=== PATIENT | male | born 1995 | race Caucasian/White ===

== ENCOUNTER 2017-03-09 18:01 | Emergency (ER) | payer MEDICAID ==
[~2017-03-09] VITALS: Ht 177.8 cm; Wt 63.5 kg
--- OUTSIDE RECORDS SUMMARY | 2017-03-09 18:19 | External Medical Summary Rpt | CCD ---
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 014 ed 10:30 Neutrop 05-13-2 2.9 X 1.5-7.1 Normal complet hil 014 10\S\3 ed Count 10:30 Monocyt 05-13-2 0.5 X 0.2-1.2 Normal complet e Count 014 10\S\3 ed 10:30 Eosinop 05-13-2 0.1 X 0.0-0.8 Normal complet hil 014 10\S\3 ed Count 10:30 Basophi -13-2 0.0 X 0.0-0.1 Normal complet l Count 014 10\S\3 ed 10:30 Lymphoc -13-2 2.1 X 0.7-4.3 Normal complet yte 014 10\S\3 ed Count 10:30 BASIC METABOLIC PANEL (10-04-2013 10:30) Glucose --2 96 70-99 Normal complet 014 mg/dL ed 10:30 BUN -13-2 11 5-18 Normal complet 014 mg/dL ed 10:30 Creatin -13-2 1.0 0.3-0.9 Above complet ine 014 mg/dL high ed 10:30 normal Sodium --2 140 133-144 Normal complet 014 mEq/L ed 10:30 Potassi 10-04-2 4.3 3.5-5.0 Normal complet um 014 mEq/L ed 10:30 Chlorid 10-04-2 103 99-108 Normal complet e 014 mEq/L ed 10:30 CO2 -13-2 29 21-29 Normal complet 014 mmol/L ed 10:30 Calcium 10-04-2 9.7 7.5-10. Normal complet 014 mg/dL 2 ed 10:30 BUN/Cre 10-04-2 11 complet at 014 ed Ratio 10:30 CBC W/DIFF (08-30-2013 01:49) WBC -08-2 6.4 X 3.9-11. Normal complet 014 10\S\3 6 ed 01:49 Basophi 08-30-2 0.4 % 0.0-2.0 Normal complet ls % 014 ed 01:49 Neutrop 08-2 2.9 X 1.5-7.1 Normal complet hil 014 10\S\3 ed Count 01:49 Monocyt -08-2 0.6 X 0.2-1.2 Normal complet e Count 014 10\S\3 ed 01:49 Eosinop -08-2 0.3 X 0.0-0.8 Normal complet hil 014 10\S\3 ed Count 01:49 Basophi 08-2 0.0 X 0.0-0.1 Normal complet l Count 014 10\S\3 ed 01:49 Lymphoc 04-08-2 2.6 X 0.7-4.3 Normal complet yte 014 10\S\3 ed Count 01:49 RBC 04-08-2 4.96 X 3.69-5. Normal complet 014 10\S\6 73 ed 01:49 Hemoglo -08-2 15.1 11.8-15 Normal complet bin 014 gm/dL .7 ed 01:49 Hematoc -08-2 43.5 % 35.6-45 Normal complet rit 014 .6 ed 01:49 Platele -08-2 159 X 125-365 Normal complet t 014 10\S\3 ed 01:49 MCH 04-08-2 30.4 pg 25.5-33 Normal complet 014 .7 ed 01:49 MCHC -08-2 34.7 31.8-35 Normal complet 014 gm/dL .7 ed 01:49 MCV -08-2 87.6 fl 78.0-98 Normal complet 014 .0 ed 01:49 RDW 08-2 13.5 % 10.7-14 Normal complet 014 .1 ed 01:49 MPV -08-2 7.7 fl 6.6-10. Normal complet 014 1 ed 01:49 Neutrop 04-08-2 45.2 % 33.0-89 Normal complet hils % 014 .0 ed 01:49 Lymphoc -08-2 41.3 % 4.0-51. Normal complet ytes % 014 0 ed 01:49 Monocyt -08-2 8.8 % 3.0-15. Normal complet es % 014 0 ed 01:49 Eosinop 08-2 4.3 % 0.0-6.0 Normal complet hils % 014 ed 01:49 TYPE/RH (08-30-2013 01:49) ABO/RH O complet TYPING 014 Negativ ed 01:49 e Procedures Procedure DOS Code Location Performer Comment [facility] 13499 TRIANGLE IRMA LOWER 7 ANESTHESI INTESTINE A GROUP PS ENDOSCOPY DISTAL DUODENUM COLONOSCO 32279 [facility] WOODY PY FLX DX 7 [place] W/COLLJ G SPEC WHEN SURGICAL PFRMD [facility] G0463 [place] MENJIVAR OUTPATIEN 7 G A R H G A R H T CLIN VISIT ASSESS & MGMT PT SIMPLE 16577 [facility] 7 MEDICAL SCALP/NEC PARTNERS K/AX/CLAUDETTE LL T/TRUNK 2.5CM/< GROUND A0425 NEON NEON MILEAGE 7 VOLUNTEER VOLUNTEER PER FIRE FIRE STATUTE DEPT\EMS DEPT\EMS MILE AMBULANCE A0429 NEON NEON SERVICE 7 VOLUNTEER VOLUNTEER BLS FIRE FIRE EMERGENCY DEPT\EMS DEPT\[place] [address] KAUSHAL RANGEL JR ABDOMEN & 7 JUAN CARLOS MOREL PELVIS PC W/O CONTRAST MATERIAL [facility] G0463 [place] [facility] OUTPATIEN 5 G A R H G A R H T CLIN VISIT ASSESS & MGMT PT HOSPITAL G0463 [place] OUTPATIEN 5 G A R H G A R H T CLIN VISIT ASSESS & MGMT PT [facility] 66836 HECTOR YOUNG CEPHALOGR 5 [facility] W/REC CENTER CENTER AWAKE&DAREN WSY MRI BRAIN 65321 HECTOR LOPEZ BRAIN 5 DEN STEM W/O RADIOLOGY W/[place] [address] HECTOR LOPEZ HEAD/BRAI 5 DEN N W/O RADIOLOGY CONTRAST PLLC MATERIAL COLLECTIO 63295 [facility] [place] N VENOUS 4 G A R H G A R H BLOOD VENIPUNCT URE BLOOD 67621 [place] COUNT 4 G A R H G A R H COMPLETE AUTO&[place] [address] [place] ABDOMEN & 4 G A R H G A R H PELVIS W/O CONTRST 1/> BODY RE BASIC 76241 [place] METABOLIC 4 G A R H G A R H PANEL CALCIUM TOTAL THER 65061 HECTOR YOUNG PROPH/DX 4 [facility] NJX IV CENTER CENTER PUSH SINGLE/1S T SBST/DRUG BLOOD 72986 [facility] OCCULT 4 DEMAR N PEROXIDAS EMERGENCY E ACTV SERV QUAL FECES 1-[address] [place] [address] KAUSHAL RANGEL JR HEAD/BRAI 4 JUAN CARLOS MOREL EDDIE N W/O PC CONTRAST MATERIAL SPECIAL 17959 APPAL[facility]I ANGA AMA STAIN 4 AN GROUP 1 [facility] [place] [address] APP[place] ANGA AMA SURG 4 [facility] GROSS&EMILIA ROSCOPIC EXAM RINGERS J7120 [place] LACTATE 4 G A R H G A R H INFUSION UP TO 1000 CC INJECTION J2405 [place] 4 G A R H G A R H ONDANSETR ON HCL PER 1 MG CUL 63899 [place] PRSMPTV 4 G A R H G A R H PTHGNC ORGANISM SCRN W/COLONY ESTIMJ COLONOSCO 26887 ARH ARH PY FLX DX 4 [place] W/COLLJ G G SPEC WHEN SURGICAL SURGICAL PFRMD CLIN CLIN ANES 21198 TRIANGLE HESS DEV LOWER 4 ANESTHESI INTESTINE A GROUP PS ENDOSCOPY DISTAL DUODENUM EGD 71553 [place] TRANSORAL 4 G A R H G A R H BIOPSY SINGLE/MU LTIPLE INJECTION J2250 [place] 4 G A R H G A R H MIDAZOLAM HCL PER 1 MG INJECTION J3010 [place] FENTANYL 4 G A R H G A R H CITRATE 0.1 MG BASIC 48046 [place] METABOLIC 4 G A R H G A R H PANEL CALCIUM TOTAL COLLECTIO 09789 [place] N VENOUS 4 G A R H G A R H BLOOD VENIPUNCT URE BLOOD 49586 [place] COUNT 4 G A R H G A R H COMPLETE AUTO&AUTO DIFRNTL WBC INJECTION J1100 [facility] 4 [facility] [place] SODIUM PHOSPHATE 1 MG OPHTH 73139 [facility] REIS MEDICAL 4 GLORIA GLORIA XM&EVAL COMPRE NEW PT 1/> VST SPHERE V2100 [facility] REIS SINGLE 4 GLORIA GLORIA VISION PLANO +/- 4.00 PER LENS FITTING 99765 CH[facility] REIS SPECTACLE 4 GLORIA GLORIA S XCPT APHAKIA MONOFOCAL FRAMES V2020 [facility] REIS PURCHASES 4 GLORIA GLORIA SCRATCH V2760 [facility] CHATO RESISTANT 4 GLORIA GLORIA COATING PER LENS LENS V2784 CHAT[facility] CHATO POLYCARBO 4 GLORIA GLORIA [place] E[place] [address] HECTOR STEVENSON ABDOMEN & 3 ADA PELVIS RADIOLOGY W/CONTRAS PLLC T MATERIAL URNLS DIP 94097 HECTOR YOUNG 3 [facility] STICK/TAB CENTER CENTER LET REAGENT AUTO MICROSCOP Y BLOOD 56406 HECTOR YOUNG COUNT 3 [facility] COMPLETE CENTER CENTER AUTO&AUTO DIFRNTL WBC RADEX 77714 HECTOR HERNANDEZ ABDOMEN 1 3 II ALFONSO RADIOLOGY [place] [address] HECTOR YOUNG LIPASE 3 [facility] COLLECTIO 94396 HECTOR YOUNG N VENOUS 3 [facility] BLOOD [facility] [address] HECTOR YOUNG AMYLASE 3 [facility] COMPREHEN 37029 HECTOR YOUNG SIVE 3 [facility] METABOLIC [facility] PANEL RADEX 66526 KAUSHAL RANGEL JR FINGR 2 JUAN CARLOS MOREL EDDIE MINIMUM 2 PC VIEWS ANES 01353 [place] [facility] UPPER GI 1 [facility] ENDOSCOPY SERVICES PROXIMAL TO DUODENUM COLONOSCO [address] [facility] PY FLX DX 1 Y [facility] [place] [address] [facility] ALCON NOAH SURG 1 Y OF PATHOLOGY [facility] GROSS&EMILIA ROSCOP[place] EX[place]GD [address] [facility] TRANSORAL 1 Y Y BIOPSY [facility] SINGLE/MU LTIPLE INFUSION J7030 [facility] NORMAL 1 Y Y SALINE [facility] SOLUTION 1000 CC SCREENING 18699 AKILAH AKILAH TEST 1 MELIZA HAIDER VISUAL ELEMENTAR ELEMENTAR ACUITY Y Y QUANTITAT DENITA BILAT SCREENING 36808 AKILAH AKILAH TEST 1 MELIZA HAIDER PURE TONE ELEMENTAR ELEMENTAR AIR ONLY Y Y CUL BACT 52728 [facility] XCPT [facility] [place] [facility] [facility] URINE BLOOD/STO OL AEROBIC ISOL BLOOD 81773 [facility] COUNT 0 COMP RACHEL COMPLETE HEALTH AUTO&AUTO [place] DIFRNTL WBC HETEROPHI 85337 DANAY ART LE 0 COMP RACHEL ANTIBOD[place] [address] LEANDER RUBENS STREPTOCO 0 COMP RACHEL [facility] [place] COLLECTIO 80216 DANAY ART N VENOUS 0 COMP RACHEL BLOOD HEALTH VENIPUNCT [place] URE SCREENING 45710 AKILAH AKILAH TEST 0 HAIDER HAIDER VISUAL ELEMENTAR ELEMENTAR ACUITY Y Y QUANTITAT DENITA BILAT SCREENING 61468 AKILAH AKILAH TEST 0 HAIDER HAIDER PURE TONE ELEMENTAR ELEMENTAR AIR ONLY Y Y CUL BACT 65389 [facility] XCPT 0 [facility] INC URINE BLOOD/[place] [address] LEANDER JAILENE STREPTOCO 0 COMP MAT [facility] [place] OPHTH 53637 Brian REIS MEDICAL 0 CHATO GLORIA XM&EVAL OD PSC COMPRHNSV ESTAB PT 1/> FITTING 01566 Brian REIS SPECTACLE 0 CHATO GLORIA S XCPT OD PSC APHAKIA MONOFOCAL FRAMES V2020 Brian REIS PURCHASES 0 CHATO GLORIA OD PSC SPHERE V2101 Brian REIS SINGLE 0 CHATO GLORIA VISION OD PSC +/- 4.12 +/- 7.00D PER LENS FRAMES V2020 Brian REIS, PURCHASES 9 CHATO CARISSA K OD PSC KOD FITTING 50636 Brian REIS, SPECTACLE 9 CHATO CARISSA K S XCPT OD PSC APHAKIA KOD MONOFOCAL SPHERE V2100 Brian REIS, SINGLE 9 CHATO CARISSA K VISION OD PSC PLANO +/- KOD 4.00 PER LENS OPHTH 94639 Brian REIS, MEDICAL 9 CHATO CARISSA K XM&EVAL OD PSC COMPRHNSV KOD ESTAB PT 1/> SCREENING 88064 DHS/CO AKILAH TEST 9 [facility] PURE TONE CENTRAL ELEMENTAR AIR ONLY BANK ACCT Y MCV4 74733 DHS/CO AKILAH MENACWY 9 [facility] CENTRAL ELEMENTAR GRPS BANK ACCT Y [id number] IM USE RADEX 03998 [place] FACIAL 9 G A R H G A R H BONES COMPLETE MINIMUM 3 VIEWS SPECIAL 66931 [place]TON[place] STAIN 9 [facility], GROUP 1 SERV SUSAN Yoder [facility] NISMS I&[place] [address] [place] SURG 9 [facility], PATHOLOGY SERV SUSAN M FOUNDATIO GROSS&EMILIA ROSCOPIC EXAM COLONOSCO 45882 [facility] 9 Y Y W/BIOPSY [facility] SINGLE/MU LTIPLE ANES 25447 MEAGAN LASHAUN, LOWER 9 [facility] IN[facility] ENDOSCOPY DISTAL DUODENUM COLSC FLX [address] [facility] 9 Y Y W/REMOVAL [facility] LESION BY HOT BX FORCEPS GI IMAG 05769 MEAGAN MCCURDY, INTRALUMI 9 MEDICAL MARY NAL SERV ESOPHAGUS FOUNDATIO -ILEUM W/I&R EGD 22114 [place] FLOMENHOF TRANSORAL 9 MEDICAL T, BIOPSY SERV [place] SINGLE/[place] [address] [facility] TRACT UPR 8 Y Y W/SM INT [facility] W/MULT SERIAL IMAGES TDAP 40136 [facility] MEHRPOUYA VACCINE 7 8 [place], SANDY YRS/> IM G CLINIC FRAMES V2020 Brian REIS, PURCHASES 8 CHATO Parker OD PSC KOD OPHTH 78527 Brian REIS, MEDICAL 8 CHATO Parker XM&EVAL OD PSC INTERMEDI KOD ATE ESTAB PT SPHERE V2100 Brian REIS, SINGLE 8 CHATO Parker VISION OD PSC PLANO +/- KOD 4.00 PER LENS FITTING 24288 Brian REIS, SPECTACLE 8 CHATO Parker S XCPT OD PSC APHAKIA KOD MONOFOCAL MOLEC SEP 32923 [facility] 8 Y Y ELECTROPH [facility] EACH PREPJ MOLECULAR [address] [facility] DX 8 Y Y AMPLIFICA [facility] TION TARGET EA SEQUENCE COLLECTIO [address] [facility] N VENOUS 8 Y Y BLOOD [facility] VENIPUNCT URE MOLEC [address] [facility] DIAG 8 Y Y ISOL/XTRJ [facility] EA NUCLEIC ACID TYPE MOLEC [address] [facility] MUTATION 8 Y Y ID [facility] SEQUENCIN G 1 SGM EA SGM MOLECULAR [address] [facility] 8 Y Y DIAGNOSTI [facility] CS INTERPRET ATION & REPORT SPECTROPH [address] [facility] OTOMETRY 8 Y Y ANALYT [facility] NOT ELSEWHERE SPECIFIED SCREENING 16929 DHS/CO AKILAH TEST 8 HEALTH HA[facility]ER PURE TONE CENTRAL ELEMENTAR AIR ONLY BANK ACCT Y Encounters Encounter Start End Date Code Location Performer Type Date [facility]OSP[facility] [place] - 7 7 G A R H OUTPATIEN T OFFICE 95764 [facility] OUTPATIEN 7 7 [place] T VISIT G 25 SURGICAL MINUTES CLIN EMERGENCY 74175 [facility] 7 7 G A R H DEPARTMEN T VISIT MODERATE SEVERITY EMERGENCY 95875 [facility] 7 7 MEDICAL DEPARTMEN PARTNERS T VISIT LL HIGH/URGE NT SEVERITY [facility] - 7 7 G A R H OUTPATIEN T EMERGENCY 15821 [facility] DE[facility] 7 7 MEDICAL VISIT PARTNERS HIGH LL SEVERITY& THREAT FUNCJ OFFICE 02140 [facility] OUTPATI[facility] 5 5 T VISIT MORMON 15 HOSP MINUTES OFFICE 14216 DANA[facility] AGARWAL OUTPATIEN 5 5 COMP BYR T VISIT HEALTH 15 [place] MINUTES EMERGENCY 77291 [facility] 5 5 MEDICAL RICHI DEPARTMEN PARTNERS PAULETTE T VISIT LL MODERATE SEVERITY OFFICE 81826 [facility] OUTPAT[facility]EN 5 5 T VISIT 15 MINUTES [facility] [place] - 5 5 G A R H OUTPATIEN T [facility] [place] - 5 5 G A R H OUTPATIEN T OFFICE 99521 [facility] OUTPATIEN 5 5 T VISIT 25 MINUTES OFFICE 36672 DANA[facility] AGARWAL OUTPATIEN 5 5 COMP BYR T VISIT HEALTH 15 [place] MINUTES [facility] [place] - 5 5 MEDICAL OUTPATIEN CENTER T EMERGENCY 63059 [facility] 5 5 DEMAR N CHR VISIT EMERGENCY HIGH SERV SEVERITY& THREAT FUNJ EMERGENCY 32678 [facility] 5 5 MEDICAL ANGELIKA DEPARTMEN PARTNERS T VISIT LL HIGH/URGE NT SEVERITY OFFICE 53121 [facility] 4 4 [place] DUS T VISIT G 15 SURGICAL MINUTES CLIN [facility] [place] - 4 4 G A R H OUTPATIEN T OFFICE 38402 [facility] OUT[facility] 4 4 MIDDLE MIDDLE T VISIT HIGH HIGH 10 [facility] MINUTES [facility] [place] - 4 4 MEDICAL OUTPATIEN CENTER T EMERGENCY 80063 [facility] 4 4 DEMAR N DEPARTMEN EMERGENCY T VISIT SERV HIGH/URGE NT SEVERITY [facility]ICE 81757 [facility] 4 COMP FAR T VISIT HEALTH 15 [place] MINUTES OFFICE 18938 [facility] 4 4 [place] DUS T VISIT G 15 SURGICAL MINUTES CLIN EMERGENCY 39984 [facility] DEPT 4 4 MEDICAL ROT VISIT PARTNERS HIGH LL SEVERITY& THREAT FUNCJ EMERGENCY 70151 [place] 4 4 G A R H DEPARTMEN T VISIT HIGH/URGE NT SEVERITY [facility] [place] - 4 4 G A R H OUTPATIEN T [facility] [place] [facility] 4 4 G A R H OUTPATIEN T [facility] [place] - OTHER 4 4 G A R H OFFICE 99561 [facility] OUTPATIEN 4 4 ARH T VISIT FAMILY 10 HEALTH CE MINUTES OFFICE 91790 [facility] 4 4 [place] DUS ION G NEW/ESTAB SURGICAL PATIENT CLIN 40 MIN OFFICE 09989 [facility] OUTPATIEN 4 4 COMP VAN T VISIT HEALTH 15 [place] MINUTES EMERGENCY 15664 [facility] VISIT LL MODERATE SEVERITY [facility] [place] - 4 4 G A R H OUTPATIEN T OFFICE 63543 [facility] OUTPATIEN 4 4 ARH T VISIT FAMILY 25 HEALTH CE MINUTES OFFICE 94512 NIA ZHENG OUTPATIEN 4 4 [place] T VISIT G CLINIC 15 MINUTES OFFICE 78044 [facility] LINDAKINS OUTPATIEN 3 3 MIDDLE MIDDLE T VISIT HIGH HIGH 10 [facility] MINUTES OFFICE 23836 NIA NOONAN OUTPATIEN 3 3 OTTO SHAWNEE T VISIT G CLINIC 15 MINUTES OFFICE 70566 [facility] LINDAKINS OUTPATIEN 3 3 MIDDLE MIDDLE T VISIT HIGH HIGH 10 [facility] MINUTES OFFICE 08059 NIA ZHENG OUTPATIEN 3 3 [place] T VISIT G CLINIC 15 MINUTES OFFICE 03384 [facility] CHRISTENSEN OUTPATIEN 3 3 MIDDLE MIDDLE T VISIT HIGH HIGH 10 [facility] MINUTES EMERGENCY 60380 JACOB MANN DEPT 3 3 EMERGENCY SAHIL VISIT SERVICES HIGH SEVERITY& THREAT FUNJ EMERGENCY 07242 [facility] HIGH/URGE NT SEVERITY [facility] - 3 3 MEDICAL OUTPATIEN CENTER T OFFICE 65750 [facility] OUTPATIEN 3 3 MIDDLE MIDDLE T VISIT HIGH HIGH 10 [facility] MINUTES OFFICE 91674 [facility] HCRISTENSEN OUTPATIEN 3 3 MIDDLE MIDDLE T VISIT HIGH HIGH 10 [facility] MINUTES OFFICE 22528 [facility] OUTPATIEN 2 2 COMP LAR T VISIT HEALTH [address] [place] [address]ES [address] [facility] OUTPATIEN 2 2 COMP MAT T VISIT HEALTH 15 [place] MINUTES [facility] [place] - 2 2 G A R H OUTPATIEN T OFFICE 19415 [facility] OUTPATIEN 2 2 COMP LAR T VISIT HEALTH 15 [place] MINUTES OFFICE 58985 [facility] OUTPATIEN 2 2 COMP LAR T VISIT HEALTH [address] [place] [address]ES [address] [facility] OUTPATIEN 2 2 COMP MAT T VISIT HEALTH 10 [place] MINUTES OFFICE 93044 [facility] 15 [facility]IN MINUTES [facility] 67797 [facility] 1 NURSE T GLORIA T VISIT PRACTITIO 25 NER GR MINUTES OFFICE 03129 [facility] AKILAH OUTPATIEN 1 1 MELIZA HAIDER T VISIT ELEMENTAR ELEMENTAR 10 Y Y MINUTES OFFICE 90631 [facility] AKILAH OUTPATIEN 1 1 HAIDER HAIDER T VISIT ELEMENTAR ELEMENTAR 10 Y Y MINUTES OFFICE 24500 AKILAH AKILAH OUTPATIEN 1 1 MELIZA MCLEANES T VISIT ELEMENTAR ELEMENTAR 10 Y Y MINUTES OFFICE 52092 AKILAH AKILAH OUTPATIEN 1 1 MELIZA MCLEANES T VISIT ELEMENTAR ELEMENTAR 10 Y Y MINUTES OFFICE 92621 [facility] OUTPATIEN 1 1 MELIZA MCLEANES T VISIT ELEMENTAR ELEMENTAR 10 Y Y MINUTES OFFICE 01479 AKILAH AKILAH OUTPATIEN 1 1 HAIDER HAIDER T VISIT ELEMENTAR ELEMENTAR 10 Y Y MINUTES OFFICE 45331 AKIL[facility] AKILAH OUTPATIEN 1 1 HAIDER HAIDER T VISIT ELEMENTAR ELEMENTAR 10 Y Y MINUTES OFFICE 39105 AKIL[facility] AKILAH OUTPATIEN 1 1 HAIDER HAIDER T VISIT ELEMENTAR ELEMENTAR 10 Y Y MINUTES OFFICE 45719 AKIL[facility] AKILAH OUTPATIEN 1 1 HAIDER HAIDER T VISIT ELEMENTAR ELEMENTAR 15 Y Y MINUTES OFFICE 42041 AKIL[facility] AKILAH OUTPATIEN 1 1 HAIDER HAIDER T VISIT ELEMENTAR ELEMENTAR 15 Y Y MINUTES OFFICE 22966 AKILAH AKILAH OUTPATIEN 1 1 HAIDER HAIDER T VISIT ELEMENTAR ELEMENTAR 10 Y Y MINUTES OFFICE 28765 AKILAH AKILAH OUTPATIEN 1 1 HAIDER HAIDER T VISIT ELEMENTAR ELEMENTAR 10 Y Y MINUTES OFFICE 78773 AKILAH AKILAH OUTPATIEN 1 1 HAIDER HAIDER T VISIT ELEMENTAR ELEMENTAR 10 Y Y MINUTES PERIODIC 92939 AKILAH AKILAH PREVENTIV 1 1 HAIDER HAIDER E MED EST ELEMENTAR ELEMENTAR PATIENT Y Y 12-17YRS OFFICE 92433 AKILAH AKILAH OUTPATIEN 1 1 HAIDER HAIDER T VISIT ELEMENTAR ELEMENTAR 10 Y Y MINUTES OFFICE 85253 AKILAH AKILAH OUTPATIEN 1 1 HAIDER HAIDER T VISIT ELEMENTAR ELEMENTAR 10 Y Y MINUTES OFFICE 34164 AKILAH AKILAH OUTPATIEN 1 1 HAIDER HAIDER T VISIT ELEMENTAR ELEMENTAR 10 Y Y MINUTES OFFICE 66476 AKILAH AKILAH OUTPATIEN 0 0 HAIDER HAIDER T VISIT ELEMENTAR ELEMENTAR 10 Y Y MINUTES OFFICE 84690 AKILAH AKILAH OUTPATIEN 0 0 HAIDER HAIDER T VISIT ELEMENTAR ELEMENTAR 10 Y Y MINUTES OFFICE 18893 AKILAH AKILAH OUTPATIEN 0 0 HAIDER HAIDER T VISIT ELEMENTAR ELEMENTAR 10 Y Y MINUTES OFFICE 49807 AKILAH AKILAH OUTPATIEN 0 0 HAIDER HAIDER T VISIT ELEMENTAR ELEMENTAR 10 Y Y MINUTES OFFICE 62828 AKILAH AKILAH OUTPATIEN 0 0 HAIDER HAIDER T VISIT ELEMENTAR ELEMENTAR 10 Y Y MINUTES OFFICE 40316 AKILAH AKILAH OUTPATIEN 0 0 HAIDER HAIDER T VISIT ELEMENTAR ELEMENTAR 10 Y Y MINUTES OFFICE 23481 [facility] OUTPATIEN 0 0 COMP RACHEL T VISIT HEALTH 10 MARVIN MINUTES OFFICE 68875 AKILAH AKILAH OUTPATIEN 0 0 HAIDER HAIDER T VISIT ELEMENTAR ELEMENTAR 10 Y Y MINUTES OFFICE 66994 AKILAH AKILAH OUTPATIEN 0 0 HAIDER HAIDER T VISIT ELEMENTAR ELEMENTAR 10 Y Y MINUTES INITIAL 72374 AKILAH AKILAH PREVENTIV 0 0 HAIDER HAIDER E ELEMENTAR ELEMENTAR MEDICINE Y Y NEW PT AGE 12-17 YR OFFICE 87447 AKILAH AKILAH OUTPATIEN 0 0 HAIDER HAIDER T VISIT ELEMENTAR ELEMENTAR 10 Y Y MINUTES OFFICE 44262 AKILAH AKILAH OUTPATIEN 0 0 HAIDER HAIDER T VISIT ELEMENTAR ELEMENTAR 10 Y Y MINUTES OFFICE 78310 AKILAH AKILAH OUTPATIEN 0 0 HAIDER HAIDER T VISIT ELEMENTAR ELEMENTAR 10 Y Y MINUTES OFFICE 08931 AKILAH AKILAH OUTPATIEN 0 0 HAIDER HAIDER T VISIT ELEMENTAR ELEMENTAR 10 Y Y MINUTES OFFICE 18[address] [facility] OUTPATIEN 0 0 COMP MAT T NEW 20 HEALTH MINUTES MARVIN OFFICE 21025 AKILAH AKILAH OUTPATIEN 0 0 HAIDER HAIDER T VISIT ELEMENTAR ELEMENTAR 10 Y Y MINUTES OFFICE 39179 AKILAH AKILAH OUTPATIEN 0 0 HAIDER HAIDER T VISIT ELEMENTAR ELEMENTAR 10 Y Y MINUTES OFFICE 29966 AKILAH AKILAH OUTPATIEN 0 0 HAIDER HAIDER T VISIT ELEMENTAR ELEMENTAR 10 Y Y MINUTES OFFICE 40629 AKILAH AKILAH OUTPATIEN 0 0 HAIDER HAIDER T VISIT ELEMENTAR ELEMENTAR 10 Y Y MINUTES OFFICE 87126 AKILAH AKILAH OUTPATIEN 0 0 HAIDER HAIDER T VISIT ELEMENTAR ELEMENTAR 10 Y Y MINUTES OFFICE 65451 AKILAH AKILAH OUTPATIEN 0 0 HAIDER HAIDER T VISIT ELEMENTAR ELEMENTAR 10 Y Y MINUTES OFFICE 84452 AKILAH AKILAH OUTPATIEN 0 0 HAIDER HAIDER T VISIT ELEMENTAR ELEMENTAR 10 Y Y MINUTES OFFICE 72060 AKILAH AKILAH OUTPATIEN 0 0 HAIDER HAIDER T VISIT ELEMENTAR ELEMENTAR 10 Y Y MINUTES OFFICE 59359 AKILAH AKILAH OUTPATIEN 0 0 HAIDER HAIDER T VISIT ELEMENTAR ELEMENTAR 10 Y Y MINUTES OFFICE 92175 AKILAH AKILAH OUTPATIEN 0 0 HAIDER HAIDER T VISIT ELEMENTAR ELEMENTAR 10 Y Y MINUTES OFFICE 85711 AKILAH AKILAH OUTPATIEN 0 0 HAIDER HAIDER T VISIT ELEMENTAR ELEMENTAR 10 Y Y MINUTES OFFICE 48071 AKILAH AKILAH OUTPATIEN 0 0 HAIDER HAIDER T VISIT ELEMENTAR ELEMENTAR 10 Y Y MINUTES OFFICE 36740 AKILAH AKILAH OUTPATIEN 0 0 HAIDER HAIDER T VISIT ELEMENTAR ELEMENTAR 10 Y Y MINUTES OFFICE 23941 AKILAH AKILAH OUTPATIEN 0 0 HAIDER HAIDER T VISIT ELEMENTAR ELEMENTAR 10 Y Y MINUTES OFFICE 89683 AKILAH AKILAH OUTPATIEN 0 0 HAIDER HAIDER T VISIT ELEMENTAR ELEMENTAR 10 Y Y MINUTES OFFICE 12438 AKILAH AKILAH OUTPATIEN 0 0 HAIDER HAIDER T VISIT ELEMENTAR ELEMENTAR 10 Y Y MINUTES OFFICE 80702 AKILAH AKILAH OUTPATIEN 0 0 HAIDER HAIDER T VISIT ELEMENTAR ELEMENTAR 10 Y Y MINUTES OFFICE 86655 AKILAH AKILAH OUTPATIEN 0 0 HAIDER HAIDER T VISIT ELEMENTAR ELEMENTAR 10 Y Y MINUTES OFFICE 11815 AKILAH AKILAH OUTPATIEN 0 0 HAIDER HAIDER T VISIT ELEMENTAR ELEMENTAR 10 Y Y MINUTES OFFICE 93822 Brian REIS OUTPATIEN 0 0 CHATO Parker T VISIT OD PSC 15 KOD MINUTES OFFICE 24121 AIKLA[facility] AKILAH OUTPATIEN 0 0 HAIDER HAIDER T VISIT ELEMENTAR ELEMENTAR 10 Y Y MINUTES OFFICE 09730 AKILAH AKILAH OUTPATIEN 0 0 HAIDER HAIDER T VISIT ELEMENTAR ELEMENTAR 15 Y Y MINUTES OFFICE 15151 AKILAH AKILAH OUTPATIEN 0 0 HAIDER HAIDER T VISIT ELEMENTAR ELEMENTAR 15 Y Y MINUTES OFFICE 23216 AKILAH AKILAH OUTPATIEN 0 0 HAIDER HAIDER T VISIT ELEMENTAR ELEMENTAR 10 Y Y MINUTES OFFICE 21793 AKILAH AKILAH OUTPATIEN 0 0 HAIDER HAIDER T VISIT ELEMENTAR ELEMENTAR 10 Y Y MINUTES OFFICE 38273 AKILAH AKILAH OUTPATIEN 0 0 HAIDER HAIDER T VISIT ELEMENTAR ELEMENTAR 15 Y Y MINUTES OFFICE 35652 AKILAH AKILAH OUTPATIEN 0 0 HAIDER HAIDER T VISIT ELEMENTAR ELEMENTAR 10 Y Y MINUTES OFFICE 05704 AKILAH AKILAH OUTPATIEN 0 0 HAIDER HAIDER T VISIT ELEMENTAR ELEMENTAR 10 Y Y MINUTES OFFICE 73550 [facility] OUTPATIEN 0 0 HAIDER HAIDER T VISIT ELEMENTAR ELEMENTAR 15 Y Y MINUTES OFFICE 18504 [facility] OUTPATIEN 0 0 HAIDER HAIDER T VISIT ELEMENTAR ELEMENTAR 15 Y Y MINUTES OFFICE 99154 [facility] OUTPATIEN 0 0 HAIDER HAIDER T VISIT ELEMENTAR ELEMENTAR 15 Y Y MINUTES OFFICE 66315 [facility] OUTPATIEN 0 0 HAIDER HAIDER T VISIT ELEMENTAR ELEMENTAR 10 Y Y MINUTES OFFICE 08581 [facility] OUTPATIEN 0 0 HAIDER HAIDER T VISIT ELEMENTAR ELEMENTAR 10 Y Y MINUTES OFFICE 54372 [facility] OUTPATIEN 0 0 HAIDER HAIDER T VISIT ELEMENTAR ELEMENTAR 10 Y Y MINUTES OFFICE 50892 [facility] OUTPATIEN 0 0 HAIDER HAIDER T VISIT ELEMENTAR ELEMENTAR 15 Y Y MINUTES OFFICE 06621 [facility] OUTPATIEN 0 0 HAIDER HAIDER T VISIT ELEMENTAR ELEMENTAR 15 Y Y MINUTES OFFICE 17764 [facility] OUTPATIEN 0 0 HAIDER HAIDER T VISIT ELEMENTAR ELEMENTAR 15 Y Y MINUTES OFFICE 11641 [facility] OUTPATIEN 0 0 HAIDER HAIDER T VISIT ELEMENTAR ELEMENTAR 10 Y Y MINUTES OFFICE 19889 [facility] OUTPATIEN 0 0 HAIDER HAIDER T VISIT ELEMENTAR ELEMENTAR 10 Y Y MINUTES OFFICE 04878 [facility] OUTPATIEN 0 0 HAIDER HAIDER T VISIT ELEMENTAR ELEMENTAR 10 Y Y MINUTES OFFICE 16012 [facility] OUTPATIEN 0 0 HAIDER HAIDER T VISIT ELEMENTAR ELEMENTAR 10 Y Y MINUTES OFFICE 84153 [facility] OUTPATIEN 0 0 HAIDER HAIDER T VISIT ELEMENTAR ELEMENTAR 10 Y Y MINUTES OFFICE 77217 [facility] AK[facility] OUTPATIEN 0 0 HAIDER HAIDER T VISIT ELEMENTAR ELEMENTAR 10 Y Y MINUTES OFFICE 41876 [facility] AKIL[facility] OUTPATIEN 0 0 HADIER AHIDER T VISIT ELEMENTAR ELEMENTAR 10 Y Y MINUTES OFFICE 35342 [facility] AKILAH OUTPATIEN 0 0 AHIDER HAIDER T VISIT ELEMENTAR ELEMENTAR 15 Y Y MINUTES OFFICE 10419 [facility] AKIL[facility] OUTPATIEN 0 0 HAIDER HAIDER T VISIT ELEMENTAR ELEMENTAR 10 Y Y MINUTES OFFICE 24364 AKIL[facility] AKILAH OUTPATIEN 0 0 HAIDERJONATAN MCLEANES T VISIT ELEMENTAR ELEMENTAR 10 Y Y MINUTES OFFICE 90527 [facility] OUTPATIEN 0 0 HAIDER HAIDER T VISIT ELEMENTAR ELEMENTAR 10 Y Y MINUTES OFFICE 02832 [facility] AK[facility] OUTPATIEN 0 0 HAIDER HAIDER T VISIT ELEMENTAR ELEMENTAR 10 Y Y MINUTES OFFICE 19575 [facility] AK[facility] OUTPATIEN 0 0 HAIDER HAIDER T VISIT ELEMENTAR ELEMENTAR 15 Y Y MINUTES OFFICE 37706 [facility] AKILAH OUTPATIEN 0 0 HAIDER HAIDER T VISIT ELEMENTAR ELEMENTAR 15 Y Y MINUTES OFFICE 85498 AK[facility] AKILAH OUTPATIEN 0 0 HAIDER HAIDER T VISIT ELEMENTAR ELEMENTAR 10 Y Y MINUTES OFFICE 35004 AK[facility] AKILAH OUTPATIEN 0 0 HAIDER HAIDER T VISIT ELEMENTAR ELEMENTAR 10 Y Y MINUTES OFFICE 90779 [facility] AKIL[facility] OUTPATIEN 0 0 HAIDER HAIDER T VISIT ELEMENTAR ELEMENTAR 10 Y Y MINUTES OFFICE 61971 AKIL[facility] AKILAH OUTPATIEN 0 0 HAIDER HAIDER T VISIT ELEMENTAR ELEMENTAR 15 Y Y MINUTES OFFICE 91661 AK[facility] AKILAH OUTPATIEN 0 0 HAIDER HAIDER T VISIT ELEMENTAR ELEMENTAR 15 Y Y MINUTES OFFICE 04935 AK[facility] AKILAH OUTPATIEN 0 0 HAIDER HAIDER T VISIT ELEMENTAR ELEMENTAR 15 Y Y MINUTES OFFICE 67051 AKILAH AKILAH OUTPATIEN 0 0 HAIDER HAIDER T VISIT ELEMENTAR ELEMENTAR 15 Y Y MINUTES OFFICE 75875 AKIL[facility] AKILAH OUTPATIEN 0 0 HAIDER HAIDER T VISIT ELEMENTAR ELEMENTAR 10 Y Y MINUTES OFFICE 79022 AKIL[facility] AKILAH OUTPATIEN 0 0 HAIDER HAIDER T VISIT ELEMENTAR ELEMENTAR 10 Y Y MINUTES OFFICE 48405 AKILAH AKILAH OUTPATIEN 0 0 HAIDER HAIDER T VISIT ELEMENTAR ELEMENTAR 15 Y Y MINUTES OFFICE 98304 AKILAH AKILAH OUTPATIEN 9 9 HAIDER HAIDER T VISIT ELEMENTAR ELEMENTAR 10 Y Y MINUTES OFFICE 80974 AKILAH AKILAH OUTPATIEN 9 9 HAIDER HAIDER T VISIT ELEMENTAR ELEMENTAR 10 Y Y MINUTES OFFICE 77105 AKIL[facility] AKILAH OUTPATIEN 9 9 HAIDER HAIDER T VISIT ELEMENTAR ELEMENTAR 10 Y Y MINUTES OFFICE 43057 [facility] 9 9 [facility] HAID[facility] T VISIT CENTRAL ELEMENTAR 10 BANK ACCT Y MINUTES OFFICE 49536 [facility] OUTPATIEN 9 9 HEALTH HAIDER T VISIT CENTRAL ELEMENTAR 10 BANK ACCT Y MINUTES OFFICE 38298 [facility] OUTPATIEN 9 9 HEALTH HAIDER T VISIT CENTRAL ELEMENTAR 15 BANK ACCT Y MINUTES OFFICE 74591 [facility] OUTPATIEN 9 9 [facility]ALTH HAIDER T VISIT CENTRAL ELEMENTAR 15 BANK ACCT Y MINUTES OFFICE 94941 [facility] OUTPATI[facility] 9 9 [facility] HAIDER T VISIT CENTRAL ELEMENTAR 15 BANK ACCT Y MINUTES OFFICE 54809 [facility] OUTPATIEN 9 9 HEALTH HAIDER T VISIT CENTRAL ELEMENTAR 10 BANK ACCT Y MINUTES OFFICE 26557 [facility] OUTPATIEN 9 9 HEALTH HAIDER T VISIT CENTRAL ELEMENTAR 10 BANK ACCT Y MINUTES OFFICE 36002 [facility] OUTPATIEN 9 9 HEALTH HAIDER T VISIT CENTRAL ELEMENTAR 10 BANK ACCT Y MINUTES OFFICE 57836 [facility] OUTPATI[facility] 9 9 HEALTH HAIDER T VISIT CENTRAL ELEMENTAR 10 BANK ACCT Y MINUTES OFFICE 97398 [facility] OUTPATIEN 9 9 HEALTH HAIDER T VISIT CENTRAL ELEMENTAR 10 BANK ACCT Y MINUTES OFFICE 04698 [facility] OUTPATIEN 9 9 HEALTH HAIDER T VISIT CENTRAL ELEMENTAR 10 BANK ACCT Y MINUTES OFFICE 43957 [facility] OUTPATIEN 9 9 HEALTH HAIDER T VISIT CENTRAL ELEMENTAR 10 BANK ACCT Y MINUTES OFFICE 97109 [facility] OUTPATIEN 9 9 HEALTH HAIDER T VISIT CENTRAL ELEMENTAR 10 BANK ACCT Y MINUTES OFFICE 66088 [facility] OUTPATIEN 9 9 HEALTH HAIDER T VISIT CENTRAL ELEMENTAR 10 BANK ACCT Y MINUTES OFFICE 93756 [facility] OUTPATIEN 9 9 HEALTH HAIDER T VISIT CENTRAL ELEMENTAR 10 BANK ACCT Y MINUTES OFFICE 01033 [facility] OUTPATI[facility] 9 9 [facility] HAIDER T VISIT CENTRAL ELEMENTAR 10 BANK ACCT Y MINUTES OFFICE 74200 [facility] OUTPATI[facility] 9 9 [facility] HAIDER T VISIT CENTRAL ELEMENTAR 15 BANK ACCT Y MINUTES OFFICE 51312 [facility] OUTPATI[facility] 9 9 [facility] HAIDER T VISIT CENTRAL ELEMENTAR 10 BANK ACCT Y MINUTES OFFICE 54417 [facility] OUTPATI[facility] 9 9 [facility] HAIDER T VISIT CENTRAL ELEMENTAR 10 BANK ACCT Y MINUTES OFFICE 86964 [facility], OUTPATIEN 9 9 [place] [facility] 15 MINUTES OFFICE 74774 [facility] OUTPATIEN 9 9 [facility]IDER T VISIT CENTRAL ELEMENTAR 10 BANK ACCT Y MINUTES OFFICE 91023 [facility] OUTPATIEN 9 9 [facility] HAIDER T VISIT CENTRAL ELEMENTAR 10 BANK ACCT Y MINUTES OFFICE 49951 [facility] OUTPATIEN 9 9 [facility] HAIDER T VISIT CENTRAL ELEMENTAR 10 BANK ACCT Y MINUTES OFFICE 29748 [facility] OUTPATIEN 9 9 [facility]IDER T VISIT CENTRAL ELEMENTAR 15 BANK ACCT Y MINUTES OFFICE 35319 [facility] OUTPATI[facility] 9 9 [facility] T VISIT CENTRAL ELEMENTAR 15 BANK ACCT Y MINUTES INITIAL 86218 [facility] PREVENTIV 9 9 [facility] E CENTRAL ELEMENTAR MEDICINE BANK ACCT Y NEW PT AGE 5-11 YRS OFFICE 96519 [facility] OUTPATIEN 9 9 [facility]IDER T VISIT CENTRAL ELEMENTAR 25 BANK ACCT Y MINUTES OFFICE 04523 [facility], OUTPATIEN 9 9 [place] [facility] G T [facility] 15 MINUTES [facility] [place] - 9 9 G A R H OUTPATIEN T OFFICE 23064 [facility]PATI[facility] 9 9 [facility] T VISIT CENTRAL ELEMENTAR 25 BANK ACCT Y MINUTES [facility] - 9 9 Y OUTPATIEN [facility] T OFFICE 46266 [facility] OUTPATI[facility] 8 8 [facility] T VISIT CENTRAL ELEMENTAR 15 BANK ACCT Y MINUTES OFFICE 20228 [place] [facility] 8 8 MEDICAL T, T VISIT [address] [facility] - 8 8 Y [facility] T OFFICE 27853 [facility] 8 8 [place], SANDY T VISIT G CLINIC 15 MINUTES OFFICE 06177 [place] [facility] 8 8 MEDICAL T, T VISIT [address] [facility] - 8 8 Y [facility] T OFFICE 27627 [facility] OUTPATIEN 8 8 [facility] T VISIT CENTRAL ELEMENTAR 15 BANK ACCT Y MINUTES PERIODIC 59354 [facility] PREVENTIV 8 8 HEALTH HAIDER E MED EST CENTRAL ELEMENTAR PATIENT BANK ACCT Y [id number] OFFICE 25243 [facility]PATIEN 8 8 [facility]IDER T VISIT CENTRAL ELEMENTAR 15 BANK ACCT Y MINUTES
--- OUTSIDE RECORDS SUMMARY | 2017-03-09 18:19 | External Medical Summary Rpt | CCD ---
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 PREVENTIV 0 0 HAIDER HAIDER E ELEMENTAR ELEMENTAR MEDICINE Y Y NEW PT AGE 12-17 YR OFFICE 95057 [facility] OUTPATIEN 0 0 HAIDER HAIDER T VISIT ELEMENTAR ELEMENTAR 10 Y Y MINUTES OFFICE 51126 [facility] OUTPATIEN 0 0 HAIDER HAIDER T VISIT ELEMENTAR ELEMENTAR 10 Y Y MINUTES OFFICE 63937 [facility] OUTPATIEN 0 0 HAIDER HAIDER T VISIT ELEMENTAR ELEMENTAR 10 Y Y MINUTES OFFICE 23368 [facility] OUTPATIEN 0 0 HAIDER HAIDER T VISIT ELEMENTAR ELEMENTAR 10 Y Y MINUTES OFFICE 17167 [facility] OUTPATIEN 0 0 COMP MAT T NEW 20 HEALTH MINUTES MARVIN OFFICE 67826 [facility] OUTPATIEN 0 0 HAIDER HAIDER T VISIT ELEMENTAR ELEMENTAR 10 Y Y MINUTES OFFICE 95791 [facility] OUTPATIEN 0 0 HAIDER HAIDER T VISIT ELEMENTAR ELEMENTAR 10 Y Y MINUTES OFFICE 65697 [facility] OUTPATIEN 0 0 HAIDER HAIDER T VISIT ELEMENTAR ELEMENTAR 10 Y Y MINUTES OFFICE 41262 [facility] OUTPATIEN 0 0 HAIDER HAIDER T VISIT ELEMENTAR ELEMENTAR 10 Y Y MINUTES OFFICE 48356 [facility] OUTPATIEN 0 0 HAIDER HAIDER T VISIT ELEMENTAR ELEMENTAR 10 Y Y MINUTES OFFICE 82600 [facility] OUTPATIEN 0 0 HAIDER HAIDER T VISIT ELEMENTAR ELEMENTAR 10 Y Y MINUTES OFFICE 34751 [facility] OUTPATIEN 0 0 HAIDER HAIDER T VISIT ELEMENTAR ELEMENTAR 10 Y Y MINUTES OFFICE 97294 [facility] OUTPATIEN 0 0 HAIDER HAIDER T VISIT ELEMENTAR ELEMENTAR 10 Y Y MINUTES OFFICE 54771 [facility] OUTPATIEN 0 0 HAIDER HAIDER T VISIT ELEMENTAR ELEMENTAR 10 Y Y MINUTES OFFICE 31031 [facility] OUTPATIEN 0 0 HAIDER HAIDER T VISIT ELEMENTAR ELEMENTAR 10 Y Y MINUTES OFFICE 44443 [facility] OUTPATIEN 0 0 HAIDER HAIDER T VISIT ELEMENTAR ELEMENTAR 10 Y Y MINUTES OFFICE 86054 [facility] OUTPATIEN 0 0 HAIDER HAIDER T VISIT ELEMENTAR ELEMENTAR 10 Y Y MINUTES OFFICE 31863 [facility] OUTPATIEN 0 0 HAIDER HAIDER T VISIT ELEMENTAR ELEMENTAR 10 Y Y MINUTES OFFICE 75120 [facility] OUTPATIEN 0 0 HAIDER HAIDER T VISIT ELEMENTAR ELEMENTAR 10 Y Y MINUTES OFFICE 10651 [facility] OUTPATIEN 0 0 HAIDER HAIDER T VISIT ELEMENTAR ELEMENTAR 10 Y Y MINUTES OFFICE 36891 [facility] OUTPATIEN 0 0 HAIDER HAIDER T VISIT ELEMENTAR ELEMENTAR 10 Y Y MINUTES OFFICE 84983 [facility] OUTPATIEN 0 0 HAIDER HAIDER T VISIT ELEMENTAR ELEMENTAR 10 Y Y MINUTES OFFICE 54503 [facility] OUTPATIEN 0 0 HAIDER HAIDER T VISIT ELEMENTAR ELEMENTAR 10 Y Y MINUTES OFFICE 42140 [facility] OUTPATIEN 0 0 HAIDER HAIDER T VISIT ELEMENTAR ELEMENTAR 10 Y Y MINUTES OFFICE 13505 [facility] OUTPATIEN 0 0 CHATO Parker T VISIT OD PSC 15 KOD MINUTES OFFICE 21481 [facility] OUTPATIEN 0 0 HAIDER HAIDER T VISIT ELEMENTAR ELEMENTAR 10 Y Y MINUTES OFFICE 70331 [facility] OUTPATIEN 0 0 HAIDER HAIDER T VISIT ELEMENTAR ELEMENTAR 15 Y Y MINUTES OFFICE 66303 [facility] OUTPATIEN 0 0 HAIDER HAIDER T VISIT ELEMENTAR ELEMENTAR 15 Y Y MINUTES OFFICE 38204 [facility] OUTPATIEN 0 0 HAIDER HAIDER T VISIT ELEMENTAR ELEMENTAR 10 Y Y MINUTES OFFICE 11482 [facility] OUTPATIEN 0 0 HAIDER HAIDER T VISIT ELEMENTAR ELEMENTAR 10 Y Y MINUTES OFFICE 52113 [facility] OUTPATIEN 0 0 HAIDER HAIDER T VISIT ELEMENTAR ELEMENTAR 15 Y Y MINUTES OFFICE 83021 [facility] OUTPATIEN 0 0 HAIDER HAIDER T VISIT ELEMENTAR ELEMENTAR 10 Y Y MINUTES OFFICE 18778 [facility] OUTPATIEN 0 0 HAIDER HAIDER T VISIT ELEMENTAR ELEMENTAR 10 Y Y MINUTES OFFICE 95626 [facility] OUTPATIEN 0 0 HAIDER HAIDER T VISIT ELEMENTAR ELEMENTAR 15 Y Y MINUTES OFFICE 52608 [facility] OUTPATIEN 0 0 HAIDER HAIDER T VISIT ELEMENTAR ELEMENTAR 15 Y Y MINUTES OFFICE 10322 [facility] OUTPATIEN 0 0 HAIDER HAIDER T VISIT ELEMENTAR ELEMENTAR 15 Y Y MINUTES OFFICE 42141 [facility] OUTPATIEN 0 0 HAIDER HAIDER T VISIT ELEMENTAR ELEMENTAR 10 Y Y MINUTES OFFICE 97523 [facility] OUTPATIEN 0 0 HAIDER HAIDER T VISIT ELEMENTAR ELEMENTAR 10 Y Y MINUTES OFFICE 52967 [facility] OUTPATIEN 0 0 HAIDER HAIDER T VISIT ELEMENTAR ELEMENTAR 10 Y Y MINUTES OFFICE 13835 [facility] OUTPATIEN 0 0 HAIDER HAIDER T VISIT ELEMENTAR ELEMENTAR 15 Y Y MINUTES OFFICE 96366 [facility] OUTPATIEN 0 0 HAIDER HAIDER T VISIT ELEMENTAR ELEMENTAR 15 Y Y MINUTES OFFICE 00433 [facility] OUTPATIEN 0 0 HAIDER HAIDER T VISIT ELEMENTAR ELEMENTAR 15 Y Y MINUTES OFFICE 50467 [facility] OUTPATIEN 0 0 HAIDER HAIDER T VISIT ELEMENTAR ELEMENTAR 10 Y Y MINUTES OFFICE 27529 [facility] OUTPATIEN 0 0 HAIDER HAIDER T VISIT ELEMENTAR ELEMENTAR 10 Y Y MINUTES OFFICE 66160 [facility] OUTPATIEN 0 0 HAIDER HAIDER T VISIT ELEMENTAR ELEMENTAR 10 Y Y MINUTES OFFICE 14288 [facility] OUTPATIEN 0 0 HAIDER HAIDER T VISIT ELEMENTAR ELEMENTAR 10 Y Y MINUTES OFFICE 29057 [facility] OUTPATIEN 0 0 HAIDRE HAIDER T VISIT ELEMENTAR ELEMENTAR 10 Y Y MINUTES OFFICE 02671 [facility] OUTPATIEN 0 0 HAIDER HAIDER T VISIT ELEMENTAR ELEMENTAR 10 Y Y MINUTES OFFICE 54679 [facility] OUTPATIEN 0 0 HAIDER HAIDER T VISIT ELEMENTAR ELEMENTAR 10 Y Y MINUTES OFFICE 49410 [facility] OUTPATIEN 0 0 HAIDER HAIDER T VISIT ELEMENTAR ELEMENTAR 15 Y Y MINUTES OFFICE 44737 [facility] OUTPATIEN 0 0 HAIDER HAIDER T VISIT ELEMENTAR ELEMENTAR 10 Y Y MINUTES OFFICE 39740 [facility] OUTPATIEN 0 0 HAIDERJONATAN MCLEANES T VISIT ELEMENTAR ELEMENTAR 10 Y Y MINUTES OFFICE 09998 [facility] OUTPATIEN 0 0 HAIDER HAIDER T VISIT ELEMENTAR ELEMENTAR 10 Y Y MINUTES OFFICE 04995 [facility] OUTPATIEN 0 0 HAIDER HAIDER T VISIT ELEMENTAR ELEMENTAR 10 Y Y MINUTES OFFICE 04285 [facility] OUTPATIEN 0 0 HAIDER HAIDER T VISIT ELEMENTAR ELEMENTAR 15 Y Y MINUTES OFFICE 38541 [facility] OUTPATIEN 0 0 HAIDER HAIDER T VISIT ELEMENTAR ELEMENTAR 15 Y Y MINUTES OFFICE 93001 [facility] OUTPATIEN 0 0 HAIDER HAIDER T VISIT ELEMENTAR ELEMENTAR 10 Y Y MINUTES OFFICE 91038 [facility] OUTPATIEN 0 0 HAIDER HAIDER T VISIT ELEMENTAR ELEMENTAR 10 Y Y MINUTES OFFICE 26526 [facility] OUTPATIEN 0 0 HAIDER HAIDER T VISIT ELEMENTAR ELEMENTAR 10 Y Y MINUTES OFFICE 84543 [facility] OUTPATIEN 0 0 HAIDER HAIDER T VISIT ELEMENTAR ELEMENTAR 15 Y Y MINUTES OFFICE 76186 [facility] OUTPATIEN 0 0 HAIDER HAIDER T VISIT ELEMENTAR ELEMENTAR 15 Y Y MINUTES OFFICE 66734 [facility] OUTPATIEN 0 0 HAIDER HAIDER T VISIT ELEMENTAR ELEMENTAR 15 Y Y MINUTES OFFICE 87847 [facility] OUTPATIEN 0 0 HAIDER HAIDER T VISIT ELEMENTAR ELEMENTAR 15 Y Y MINUTES OFFICE 66507 [facility] OUTPATIEN 0 0 HAIDER HAIDER T VISIT ELEMENTAR ELEMENTAR 10 Y Y MINUTES OFFICE 39740 [facility] OUTPATIEN 0 0 HAIDER HAIDER T VISIT ELEMENTAR ELEMENTAR 10 Y Y MINUTES OFFICE 44016 [facility] OUTPATIEN 0 0 HAIDER HAIDER T VISIT ELEMENTAR ELEMENTAR 15 Y Y MINUTES OFFICE 98864 [facility] OUTPATIEN 9 9 HAIDER HAIDER T VISIT ELEMENTAR ELEMENTAR 10 Y Y MINUTES OFFICE 90033 [facility] OUTPATIEN 9 9 HAIDER HAIDER T VISIT ELEMENTAR ELEMENTAR 10 Y Y MINUTES OFFICE 62004 [facility] OUTPATIEN 9 9 HAIDER HAIDER T VISIT ELEMENTAR ELEMENTAR 10 Y Y MINUTES OFFICE 05240 [facility] 9 9 [facility] HAIDER T VISIT CENTRAL ELEMENTAR 10 BANK ACCT Y MINUTES OFFICE 44160 [facility]PATIEN 9 9 HEALTH HAIDER T VISIT CENTRAL ELEMENTAR 10 BANK ACCT Y MINUTES OFFICE 50017 [facility] 9 9 HEALTH HAIDER T VISIT CENTRAL ELEMENTAR 15 BANK ACCT Y MINUTES OFFICE 20731 [facility] 9 9 HEALTH HAIDER T VISIT CENTRAL ELEMENTAR 15 BANK ACCT Y MINUTES OFFICE 00131 [facility] 9 9 [facility] HAIDER T VISIT CENTRAL ELEMENTAR 15 BANK ACCT Y MINUTES OFFICE 07846 [facility]PAT[facility] 9 9 HEALTH HAIDER T VISIT CENTRAL ELEMENTAR 10 BANK ACCT Y MINUTES OFFICE 78112 [facility]PAT[facility] 9 9 HEALTH HAIDER T VISIT CENTRAL ELEMENTAR 10 BANK ACCT Y MINUTES OFFICE 88635 [facility]PAT[facility] 9 9 HEALTH HAIDER T VISIT CENTRAL ELEMENTAR 10 BANK ACCT Y MINUTES OFFICE 49055 [facility] 9 9 HE[facility] HAIDER T VISIT CENTRAL ELEMENTAR 10 BANK ACCT Y MINUTES OFFICE 94224 [facility] 9 9 HE[facility] HAIDER T VISIT CENTRAL ELEMENTAR 10 BANK ACCT Y MINUTES OFFICE 73153 [facility] 9 9 HE[facility] HAIDER T VISIT CENTRAL ELEMENTAR 10 BANK ACCT Y MINUTES OFFICE 26330 [facility] 9 9 HE[facility] HAIDER T VISIT CENTRAL ELEMENTAR 10 BANK ACCT Y MINUTES OFFICE 35635 [facility] 9 9 HE[facility] HAIDER T VISIT CENTRAL ELEMENTAR 10 BANK ACCT Y MINUTES OFFICE 11281 [facility] 9 9 HEALTH HAIDER T VISIT CENTRAL ELEMENTAR 10 BANK ACCT Y MINUTES OFFICE 70407 [facility] 9 9 HE[facility] HAIDER T VISIT CENTRAL ELEMENTAR 10 BANK ACCT Y MINUTES OFFICE 30019 [facility] 9 9 HE[facility] HAIDER T VISIT CENTRAL ELEMENTAR 10 BANK ACCT Y MINUTES OFFICE 24715 [facility] 9 9 HE[facility] HAIDER T VISIT CENTRAL ELEMENTAR 15 BANK ACCT Y MINUTES OFFICE 25173 [facility] 9 9 HE[facility] HAIDER T VISIT CENTRAL ELEMENTAR 10 BANK ACCT Y MINUTES OFFICE 71488 [facility]PAT[facility] 9 9 HE[facility] HAIDER T VISIT CENTRAL ELEMENTAR 10 BANK ACCT Y MINUTES OFFICE 92667 [facility], OUTPATIEN 9 9 [place] YIS[facility] G T VIS[facility] G CLINIC 15 MINUTES OFFICE 94613 [facility] OUTPATIEN 9 9 HEALTH HAIDER T VISIT CENTRAL ELEMENTAR 10 BANK ACCT Y MINUTES OFFICE 95217 [facility] OUTPAT[facility] 9 9 HEALTH HAIDER T VISIT CENTRAL ELEMENTAR 10 BANK ACCT Y MINUTES OFFICE 87211 [facility]PAT[facility] 9 9 HEALTH HAIDER T VISIT CENTRAL ELEMENTAR 10 BANK ACCT Y MINUTES OFFICE 83291 [facility] OUTPATIEN 9 9 HEALTH HAIDER T VISIT CENTRAL ELEMENTAR 15 BANK ACCT Y MINUTES OFFICE 67498 [facility] OUTPATI[facility] 9 9 HEALTH [facility]IDER T VISIT CENTRAL ELEMENTAR 15 BANK ACCT Y MINUTES INITIAL 03542 [facility] PREVENTIV 9 9 HEALTH HAIDER E CENTRAL ELEMENTAR MEDICINE BANK ACCT Y NEW PT AGE 5-11 YRS OFFICE 77579 [facility] OUTPATIEN 9 9 [facility]IDER T VISIT CENTRAL ELEMENTAR 25 BANK ACCT Y MINUTES OFFICE 50431 [facility], OUTPATIEN 9 9 [place] YISSEL G T [facility] CLINIC 15 MINUTES [facility] [place] - 9 9 G A R H OUTPATIEN T OFFICE 59286 [facility] 9 9 [facility] T VISIT CENTRAL ELEMENTAR 25 BANK ACCT Y MINUTES [facility]OSP[facility] - 9 9 Y OUTPATIEN [facility] T OFFICE 14371 [facility]PAT[facility] 8 8 [facility]ER T VISIT CENTRAL ELEMENTAR 15 BANK ACCT Y MINUTES OFFICE 17458 [place] [facility] 8 8 MEDICAL T, T VISIT [address] UNIVERSIT - 8 8 Y [facility] T OFFICE 49428 [facility] 8 8 [place], SANDY T VISIT G CLINIC 15 MINUTES OFFICE 40043 [place] [facility] 8 8 MEDICAL T, T VISIT [address] UNIVERSIT - 8 8 Y [facility] T OFFICE 50709 [facility] OUTPAT[facility]EN 8 8 [facility]ER T VISIT CENTRAL ELEMENTAR 15 BANK ACCT Y MINUTES PERIODIC 90411 [facility] PREVENTIV 8 8 [facility]ER E MED EST CENTRAL ELEMENTAR PATIENT BANK ACCT Y 5-11YRS OFFICE 96485 [facility] 8 8 [facility]IDER T VISIT CENTRAL ELEMENTAR 15 BANK ACCT Y MINUTES
--- OUTSIDE RECORDS SUMMARY | 2017-03-09 18:24 | External Medical Summary Rpt | CCD ---
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 MINUTES OFFICE 30902 [facility] HEALTH 15 MARVIN MINUTES [facility] 84594 [facility] T VIS[facility] HEALTH 10 MARVIN MINUTES OFFICE 60305 [facility] COMP MAT T VISIT HEALTH 15 MARVIN MINUTES [facility] 1 1 NURSE T GLORIA T VISIT PRACTITIO 25 NER GR MINUTES OFFICE 91403 [facility] M[facility]A HAID[facility] T VISIT ELEMENTAR ELEMENTAR 10 Y Y MINUTES OFFICE 19147 AKIL[facility] AKILAH OUTPATIEN 1 1 HAIDER HAIDER T VISIT ELEMENTAR ELEMENTAR 10 Y Y MINUTES OFFICE 48904 AKILAH AKILAH OUTPATIEN 1 1 HAIDER HAIDER T VISIT ELEMENTAR ELEMENTAR 10 Y Y MINUTES OFFICE 01164 AK[facility] AKILAH OUTPATIEN 1 1 HAIDER HAIDER T VISIT ELEMENTAR ELEMENTAR 10 Y Y MINUTES OFFICE 27490 AK[facility] AKILAH OUTPATIEN 1 1 HAIDER HAIDER T VISIT ELEMENTAR ELEMENTAR 10 Y Y MINUTES OFFICE 93089 AK[facility] AKILAH OUTPATIEN 1 1 HAIDER HAIDER T VISIT ELEMENTAR ELEMENTAR 10 Y Y MINUTES OFFICE 42905 AK[facility] AKILAH OUTPATIEN 1 1 HAIDER HAIDER T VISIT ELEMENTAR ELEMENTAR 10 Y Y MINUTES OFFICE 32758 AK[facility] AKILAH OUTPATIEN 1 1 HAIDER HAIDER T VISIT ELEMENTAR ELEMENTAR 10 Y Y MINUTES OFFICE 00194 AK[facility] AKILAH OUTPATIEN 1 1 HAIDER HAIDER T VISIT ELEMENTAR ELEMENTAR 15 Y Y MINUTES OFFICE 67352 AKILAH AKILAH OUTPATIEN 1 1 HAIDER HAIDER T VISIT ELEMENTAR ELEMENTAR 15 Y Y MINUTES OFFICE 20407 AKILAH AKILAH OUTPATIEN 1 1 HAIDER HAIDER T VISIT ELEMENTAR ELEMENTAR 10 Y Y MINUTES OFFICE 53995 AKILAH AKILAH OUTPATIEN 1 1 HAIDER HAIDER T VISIT ELEMENTAR ELEMENTAR 10 Y Y MINUTES OFFICE 30915 AKILAH AKILAH OUTPATIEN 1 1 HAIDER HAIDER T VISIT ELEMENTAR ELEMENTAR 10 Y Y MINUTES PERIODIC 18617 AKILAH AKILAH PREVENTIV 1 1 HAIDER HAIDER E MED EST ELEMENTAR ELEMENTAR PATIENT Y Y 12-17YRS OFFICE 38021 AKILAH AKILAH OUTPATIEN 1 1 HAIDER HAIDER T VISIT ELEMENTAR ELEMENTAR 10 Y Y MINUTES OFFICE 82355 AK[facility] AKILAH OUTPATIEN 1 1 HAIDER HAIDER T VISIT ELEMENTAR ELEMENTAR 10 Y Y MINUTES OFFICE 43250 AKILAH AKILAH OUTPATIEN 1 1 HAIDER HAIDER T VISIT ELEMENTAR ELEMENTAR 10 Y Y MINUTES OFFICE 65666 AKILAH AKILAH OUTPATIEN 0 0 HAIDER HAIDER T VISIT ELEMENTAR ELEMENTAR 10 Y Y MINUTES OFFICE 22716 AKILAH AKILAH OUTPATIEN 0 0 HAIDER HAIDER T VISIT ELEMENTAR ELEMENTAR 10 Y Y MINUTES OFFICE 79007 AKILAH AKILAH OUTPATIEN 0 0 HAIDER HAIDER T VISIT ELEMENTAR ELEMENTAR 10 Y Y MINUTES OFFICE 63772 AKILAH AKILAH OUTPATIEN 0 0 HAIDER HAIDER T VISIT ELEMENTAR ELEMENTAR 10 Y Y MINUTES OFFICE 12322 AKILAH AKILAH OUTPATIEN 0 0 HAIDER HAIDER T VISIT ELEMENTAR ELEMENTAR 10 Y Y MINUTES OFFICE 11707 AKILAH AKILAH OUTPATIEN 0 0 HAIDER HAIDER T VISIT ELEMENTAR ELEMENTAR 10 Y Y MINUTES OFFICE 03806 [facility] OUTPATIEN 0 0 COMP RACHEL T VISIT HEALTH 10 MARVIN MINUTES OFFICE 03341 AKILAH AKILAH OUTPATIEN 0 0 HAIDER HAIDER T VISIT ELEMENTAR ELEMENTAR 10 Y Y MINUTES OFFICE 72615 AKILAH AKILAH OUTPATIEN 0 0 HAIDER HAIDER T VISIT ELEMENTAR ELEMENTAR 10 Y Y MINUTES INITIAL 90376 AKILAH AKILAH PREVENTIV 0 0 HAIDER HAIDER E ELEMENTAR ELEMENTAR MEDICINE Y Y NEW PT AGE 12-17 YR OFFICE 19087 AKILAH AKILAH OUTPATIEN 0 0 HAIDER HAIDER T VISIT ELEMENTAR ELEMENTAR 10 Y Y MINUTES OFFICE 61217 AK[facility] AKILAH OUTPATIEN 0 0 HAIDER HAIDER T VISIT ELEMENTAR ELEMENTAR 10 Y Y MINUTES OFFICE 23633 AKILAH AKILAH OUTPATIEN 0 0 HAIDER HAIDER T VISIT ELEMENTAR ELEMENTAR 10 Y Y MINUTES OFFICE 35640 [facility] OUTPATIEN 0 0 COMP MAT T NEW 20 HEALTH MINUTES MARVIN OFFICE 52344 AKILAH AKILAH OUTPATIEN 0 0 HAIDER HAIDER T VISIT ELEMENTAR ELEMENTAR 10 Y Y MINUTES OFFICE 39494 AKILAH AKILAH OUTPATIEN 0 0 HAIDER HAIDER T VISIT ELEMENTAR ELEMENTAR 10 Y Y MINUTES OFFICE 41194 AKILAH AKILAH OUTPATIEN 0 0 HAIDER HAIDER T VISIT ELEMENTAR ELEMENTAR 10 Y Y MINUTES OFFICE 25908 AKILAH AKILAH OUTPATIEN 0 0 HAIDER HAIDER T VISIT ELEMENTAR ELEMENTAR 10 Y Y MINUTES OFFICE 86379 AKILAH AKILAH OUTPATIEN 0 0 HAIDER HAIDER T VISIT ELEMENTAR ELEMENTAR 10 Y Y MINUTES OFFICE 61296 AKILAH AKILAH OUTPATIEN 0 0 HAIDER HAIDER T VISIT ELEMENTAR ELEMENTAR 10 Y Y MINUTES OFFICE 55970 AKILAH AKILAH OUTPATIEN 0 0 HAIDER HAIDER T VISIT ELEMENTAR ELEMENTAR 10 Y Y MINUTES OFFICE 61239 AKILAH AKILAH OUTPATIEN 0 0 HAIDER HAIDER T VISIT ELEMENTAR ELEMENTAR 10 Y Y MINUTES OFFICE 34231 AKILAH AKILAH OUTPATIEN 0 0 HAIDER HAIDER T VISIT ELEMENTAR ELEMENTAR 10 Y Y MINUTES OFFICE 44080 AKILAH AKILAH OUTPATIEN 0 0 HAIDER HAIDER T VISIT ELEMENTAR ELEMENTAR 10 Y Y MINUTES OFFICE 00440 AKILAH AKILAH OUTPATIEN 0 0 HAIDER HAIDER T VISIT ELEMENTAR ELEMENTAR 10 Y Y MINUTES OFFICE 21066 AKILAH AKILAH OUTPATIEN 0 0 HAIDER HAIDER T VISIT ELEMENTAR ELEMENTAR 10 Y Y MINUTES OFFICE 27311 AKILAH AKILAH OUTPATIEN 0 0 HAIDER HAIDER T VISIT ELEMENTAR ELEMENTAR 10 Y Y MINUTES OFFICE 40826 AKILAH AKILAH OUTPATIEN 0 0 HAIDER HAIDER T VISIT ELEMENTAR ELEMENTAR 10 Y Y MINUTES OFFICE 17598 AKILAH AKILAH OUTPATIEN 0 0 HAIDER HAIDER T VISIT ELEMENTAR ELEMENTAR 10 Y Y MINUTES OFFICE 31583 AKILAH AKILAH OUTPATIEN 0 0 HAIDER HAIDER T VISIT ELEMENTAR ELEMENTAR 10 Y Y MINUTES OFFICE 66508 AKILAH AKILAH OUTPATIEN 0 0 HAIDER HAIDER T VISIT ELEMENTAR ELEMENTAR 10 Y Y MINUTES OFFICE 47738 AKILAH AKILAH OUTPATIEN 0 0 HAIDER HAIDER T VISIT ELEMENTAR ELEMENTAR 10 Y Y MINUTES OFFICE 24375 AKILAH AKILAH OUTPATIEN 0 0 HAIDER HAIDER T VISIT ELEMENTAR ELEMENTAR 10 Y Y MINUTES OFFICE 25131 AKILAH AKILAH OUTPATIEN 0 0 HAIDER HAIDER T VISIT ELEMENTAR ELEMENTAR 10 Y Y MINUTES OFFICE 23611 GERMAN LEARY 0 0 CHATO Parker T VISIT OD PSC 15 KOD MINUTES OFFICE 20795 AKILAH AKILAH OUTPATIEN 0 0 HAIDER HAIDER T VISIT ELEMENTAR ELEMENTAR 10 Y Y MINUTES OFFICE 30196 AKILAH AKILAH OUTPATIEN 0 0 HAIDER HAIDER T VISIT ELEMENTAR ELEMENTAR 15 Y Y MINUTES OFFICE 72468 AKILAH AKILAH OUTPATIEN 0 0 HAIDER HAIDER T VISIT ELEMENTAR ELEMENTAR 15 Y Y MINUTES OFFICE 46384 AKILAH AKILAH OUTPATIEN 0 0 HAIDER HAIDER T VISIT ELEMENTAR ELEMENTAR 10 Y Y MINUTES OFFICE 47354 AKILAH AKILAH OUTPATIEN 0 0 HAIDER HAIDER T VISIT ELEMENTAR ELEMENTAR 10 Y Y MINUTES OFFICE 97298 AKILAH AKILAH OUTPATIEN 0 0 HAIDER HAIDER T VISIT ELEMENTAR ELEMENTAR 15 Y Y MINUTES OFFICE 04881 AKILAH AKILAH OUTPATIEN 0 0 HAIDER HAIDER T VISIT ELEMENTAR ELEMENTAR 10 Y Y MINUTES OFFICE 14042 AKILAH AKILAH OUTPATIEN 0 0 HAIDER HAIDER T VISIT ELEMENTAR ELEMENTAR 10 Y Y MINUTES OFFICE 69421 AKILAH AKILAH OUTPATIEN 0 0 HAIDERJONATAN MCLEANES T VISIT ELEMENTAR ELEMENTAR 15 Y Y MINUTES OFFICE 17083 AKILAH AKILAH OUTPATIEN 0 0 HAIDERJONATAN HAIDER T VISIT ELEMENTAR ELEMENTAR 15 Y Y MINUTES OFFICE 03420 AKILAH AKILAH OUTPATIEN 0 0 HAIDERJONATAN HAIDER T VISIT ELEMENTAR ELEMENTAR 15 Y Y MINUTES OFFICE 49298 AKILAH AKILAH OUTPATIEN 0 0 HAIDERJONATAN HAIDER T VISIT ELEMENTAR ELEMENTAR 10 Y Y MINUTES OFFICE 47232 AKILAH AKILAH OUTPATIEN 0 0 HAIDERJONATAN MCLEANES T VISIT ELEMENTAR ELEMENTAR 10 Y Y MINUTES OFFICE 67325 AKILAH AKILAH OUTPATIEN 0 0 HAIDER HAIDER T VISIT ELEMENTAR ELEMENTAR 10 Y Y MINUTES OFFICE 12973 AKILAH AKILAH OUTPATIEN 0 0 HAIDER HAIDER T VISIT ELEMENTAR ELEMENTAR 15 Y Y MINUTES OFFICE 76834 AKILAH AKILAH OUTPATIEN 0 0 HAIDER HAIDER T VISIT ELEMENTAR ELEMENTAR 15 Y Y MINUTES OFFICE 53597 AKILAH AKILAH OUTPATIEN 0 0 HAIDER HAIDER T VISIT ELEMENTAR ELEMENTAR 15 Y Y MINUTES OFFICE 09753 AKILAH AKILAH OUTPATIEN 0 0 HAIDER HAIDER T VISIT ELEMENTAR ELEMENTAR 10 Y Y MINUTES OFFICE 14168 AKILAH AKILAH OUTPATIEN 0 0 HAIDER HAIDER T VISIT ELEMENTAR ELEMENTAR 10 Y Y MINUTES OFFICE 09782 AKILAH AKILAH OUTPATIEN 0 0 HAIDER HAIDER T VISIT ELEMENTAR ELEMENTAR 10 Y Y MINUTES OFFICE 65423 AKILAH AKILAH OUTPATIEN 0 0 HAIDER HAIDER T VISIT ELEMENTAR ELEMENTAR 10 Y Y MINUTES OFFICE 70580 AKILAH AKILAH OUTPATIEN 0 0 HAIDER HAIDER T VISIT ELEMENTAR ELEMENTAR 10 Y Y MINUTES OFFICE 58881 AKILAH AKILAH OUTPATIEN 0 0 HAIDER HAIDER T VISIT ELEMENTAR ELEMENTAR 10 Y Y MINUTES OFFICE 34384 AKILAH AKILAH OUTPATIEN 0 0 HAIDER HAIDER T VISIT ELEMENTAR ELEMENTAR 10 Y Y MINUTES OFFICE 16776 AKILAH AKILAH OUTPATIEN 0 0 HAIDER HAIDER T VISIT ELEMENTAR ELEMENTAR 15 Y Y MINUTES OFFICE 23664 AKILAH AKILAH OUTPATIEN 0 0 HAIDER HAIDER T VISIT ELEMENTAR ELEMENTAR 10 Y Y MINUTES OFFICE 76054 AKILAH AKILAH OUTPATIEN 0 0 HAIDER HAIDER T VISIT ELEMENTAR ELEMENTAR 10 Y Y MINUTES OFFICE 85994 AKILAH AKILAH OUTPATIEN 0 0 HAIDER HAIDER T VISIT ELEMENTAR ELEMENTAR 10 Y Y MINUTES OFFICE 91641 AKILAH AKILAH OUTPATIEN 0 0 HAIDER HAIDER T VISIT ELEMENTAR ELEMENTAR 10 Y Y MINUTES OFFICE 24117 AKILAH AKILAH OUTPATIEN 0 0 HAIDER HAIDER T VISIT ELEMENTAR ELEMENTAR 15 Y Y MINUTES OFFICE 53236 AKILAH AKILAH OUTPATIEN 0 0 HAIDER HAIDER T VISIT ELEMENTAR ELEMENTAR 15 Y Y MINUTES OFFICE 44788 AKILAH AKILAH OUTPATIEN 0 0 HAIDER HAIDER T VISIT ELEMENTAR ELEMENTAR 10 Y Y MINUTES OFFICE 11433 AKILAH AKILAH OUTPATIEN 0 0 HAIDER HAIDER T VISIT ELEMENTAR ELEMENTAR 10 Y Y MINUTES OFFICE 67434 AKILAH AKILAH OUTPATIEN 0 0 HAIDER HAIDER T VISIT ELEMENTAR ELEMENTAR 10 Y Y MINUTES OFFICE 32245 AKILAH AKILAH OUTPATIEN 0 0 HAIDER HAIDER T VISIT ELEMENTAR ELEMENTAR 15 Y Y MINUTES OFFICE 53083 AKILAH AKILAH OUTPATIEN 0 0 HAIDERJONATAN MCLEANES T VISIT ELEMENTAR ELEMENTAR 15 Y Y MINUTES OFFICE 21930 AKILAH AKILAH OUTPATIEN 0 0 MELIZA HAIDER T VISIT ELEMENTAR ELEMENTAR 15 Y Y MINUTES OFFICE 72161 AKILAH AKILAH OUTPATIEN 0 0 HAIDERJONATAN HAIDER T VISIT ELEMENTAR ELEMENTAR 15 Y Y MINUTES OFFICE 43490 AKILAH AKILAH OUTPATIEN 0 0 HAIDERJONATAN HAIDER T VISIT ELEMENTAR ELEMENTAR 10 Y Y MINUTES OFFICE 23085 AKILAH AKILAH OUTPATIEN 0 0 HAIDERJONATAN MCLEANES T VISIT ELEMENTAR ELEMENTAR 10 Y Y MINUTES OFFICE 26990 AKILAH AKILAH OUTPATIEN 0 0 HAIDER HAIDER T VISIT ELEMENTAR ELEMENTAR 15 Y Y MINUTES OFFICE 74526 AKILAH AKILAH OUTPATIEN 9 9 HAIDER HAIDER T VISIT ELEMENTAR ELEMENTAR 10 Y Y MINUTES OFFICE 66361 AKILAH AKILAH OUTPATIEN 9 9 HAIDER HAIDER T VISIT ELEMENTAR ELEMENTAR 10 Y Y MINUTES OFFICE 20154 AKILAH AKILAH OUTPATIEN 9 9 HAIDER HAIDER T VISIT ELEMENTAR ELEMENTAR 10 Y Y MINUTES OFFICE 02483 [facility]PATIEN 9 9 HEALTH HAIDER T VISIT CENTRAL ELEMENTAR 10 BANK ACCT Y MINUTES OFFICE 09816 [facility] OUTPATIEN 9 9 HEALTH HAIDER T VISIT CENTRAL ELEMENTAR 10 BANK ACCT Y MINUTES OFFICE 47425 [facility] OUTPATIEN 9 9 HEALTH HAIDER T VISIT CENTRAL ELEMENTAR 15 BANK ACCT Y MINUTES OFFICE 15401 [facility] OUTPATIEN 9 9 HEALTH HAIDER T VISIT CENTRAL ELEMENTAR 15 BANK ACCT Y MINUTES OFFICE 31157 [facility] OUTPATIEN 9 9 HEALTH HAIDER T VISIT CENTRAL ELEMENTAR 15 BANK ACCT Y MINUTES OFFICE 32394 [facility] OUTPATIEN 9 9 HEALTH HAIDER T VISIT CENTRAL ELEMENTAR 10 BANK ACCT Y MINUTES OFFICE 53348 [facility] OUTPATIEN 9 9 HEALTH HAIDER T VISIT CENTRAL ELEMENTAR 10 BANK ACCT Y MINUTES OFFICE 20445 [facility] OUTPATIEN 9 9 HEALTH HAIDER T VISIT CENTRAL ELEMENTAR 10 BANK ACCT Y MINUTES OFFICE 18793 [facility] OUTPATIEN 9 9 HEALTH HAIDER T VISIT CENTRAL ELEMENTAR 10 BANK ACCT Y MINUTES OFFICE 33685 [facility] OUTPATIEN 9 9 HEALTH HAIDER T VISIT CENTRAL ELEMENTAR 10 BANK ACCT Y MINUTES OFFICE 67639 [facility] OUTPATIEN 9 9 HEALTH HAIDER T VISIT CENTRAL ELEMENTAR 10 BANK ACCT Y MINUTES OFFICE 89189 [facility] OUTPATIEN 9 9 HEALTH HAIDER T VISIT CENTRAL ELEMENTAR 10 BANK ACCT Y MINUTES OFFICE 15529 [facility] OUTPATIEN 9 9 HEALTH HAIDER T VISIT CENTRAL ELEMENTAR 10 BANK ACCT Y MINUTES OFFICE 08051 [facility] OUTPATIEN 9 9 HEALTH HAIDER T VISIT CENTRAL ELEMENTAR 10 BANK ACCT Y MINUTES OFFICE 10098 [facility] OUTPATIEN 9 9 HEALTH HAIDER T VISIT CENTRAL ELEMENTAR 10 BANK ACCT Y MINUTES OFFICE 96047 [facility] OUTPATIEN 9 9 HEALTH HAIDER T VISIT CENTRAL ELEMENTAR 10 BANK ACCT Y MINUTES OFFICE 99377 [facility] OUTPATIEN 9 9 HEALTH HAIDER T VISIT CENTRAL ELEMENTAR 15 BANK ACCT Y MINUTES OFFICE 57228 [facility] OUTPATIEN 9 9 HEALTH HAIDER T VISIT CENTRAL ELEMENTAR 10 BANK ACCT Y MINUTES OFFICE 61966 [facility] OUTPATIEN 9 9 HEALTH HAIDER T VISIT CENTRAL ELEMENTAR 10 BANK ACCT Y MINUTES OFFICE 69105 [facility], OUTPATIEN 9 9 [place] YISSEL G T VISIT G CLINIC 15 MINUTES OFFICE 00424 [facility] OUTPATIEN 9 9 HEALTH HAIDER T VISIT CENTRAL ELEMENTAR 10 BANK ACCT Y MINUTES OFFICE 89802 [facility] OUTPATIEN 9 9 HEALTH HAIDER T VISIT CENTRAL ELEMENTAR 10 BANK ACCT Y MINUTES OFFICE 29981 [facility] OUTPATIEN 9 9 HEALTH HAIDER T VISIT CENTRAL ELEMENTAR 10 BANK ACCT Y MINUTES OFFICE 07328 [facility] OUTPATIEN 9 9 HEALTH HAIDER T VISIT CENTRAL ELEMENTAR 15 BANK ACCT Y MINUTES OFFICE 73847 [facility] OUTPATIEN 9 9 HEALTH HAIDER T VISIT CENTRAL ELEMENTAR 15 BANK ACCT Y MINUTES INITIAL 60430 [facility] PREVENTIV 9 9 HEALTH HAIDER E CENTRAL ELEMENTAR MEDICINE BANK ACCT Y NEW PT AGE 5-11 YRS OFFICE 63216 [facility] OUTPATIEN 9 9 HEALTH HAIDER T VISIT CENTRAL ELEMENTAR 25 BANK ACCT Y MINUTES [facility] [place] [facility] 9 9 G A R [facility] T OFF[facility] 05835 [facility] OUTPATIEN 9 9 HEALTH HAIDER T VISIT CENTRAL ELEMENTAR 15 BANK ACCT Y MINUTES OFFICE 48993 [facility] OUTPATIEN 9 9 HEALTH HAIDER T VISIT CENTRAL ELEMENTAR 25 BANK ACCT Y MINUTES [facility] - 9 9 Y [facility] T OFFICE 33793 [facility] OUTPATIEN 8 8 HEALTH HAIDER T VISIT CENTRAL ELEMENTAR 15 BANK ACCT Y MINUTES OFFICE 19142 [place] [facility] 8 8 MEDICAL T, T VISIT SERV [facility] UNIVERSIT - 8 8 Y [facility] T OFFICE 88307 [facility] 8 8 [place] N, SANDY T VISIT G CLINIC 15 MINUTES OFFICE 71552 [place] [facility] 8 8 MEDICAL T, T VISIT SERV [facility] 25 [facility] UNIVERSIT - 8 8 Y [facility] T OFFICE 31898 [facility] OUTPATIEN 8 8 HEALTH HAIDER T VISIT CENTRAL ELEMENTAR 15 BANK ACCT Y MINUTES PERIODIC 20120 [facility] PREVENTIV 8 8 HEALTH HAIDER E MED EST CENTRAL ELEMENTAR PATIENT BANK ACCT Y 5-11YRS OFFICE 73291 [facility] OUTPATIEN 8 8 HEALTH HAIDER T VISIT CENTRAL ELEMENTAR 15 BANK ACCT Y MINUTES
--- OUTSIDE RECORDS SUMMARY | 2017-03-09 18:24 | External Medical Summary Rpt | CCD ---
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 [facility] 0 COMP RACHEL T VISIT HEALTH 10 MARVIN MINUTES OFFICE 32623 AKILAH AKILAH OUTPATIEN 0 0 HAIDER HAIDER T VISIT ELEMENTAR ELEMENTAR 10 Y Y MINUTES OFFICE 64937 [facility] AK[facility] OUTPATIEN 0 0 HAIDER HAIDER T VISIT ELEMENTAR ELEMENTAR 10 Y Y MINUTES INITIAL 92339 AKILAH AKILAH PREVENTIV 0 0 HAIDER HAIDER E ELEMENTAR ELEMENTAR MEDICINE Y Y NEW PT AGE 12-17 YR OFFICE 85519 [facility] AKIL[facility] OUTPATIEN 0 0 HAIDER HAIDER T VISIT ELEMENTAR ELEMENTAR 10 Y Y MINUTES OFFICE 36625 [facility] AKILAH OUTPATIEN 0 0 HAIDER HAIDER T VISIT ELEMENTAR ELEMENTAR 10 Y Y MINUTES OFFICE 87003 [facility] AKIL[facility] OUTPATIEN 0 0 HAIDER HAIDER T VISIT ELEMENTAR ELEMENTAR 10 Y Y MINUTES OFFICE 20668 [facility] OUTPATIEN 0 0 COMP MAT T NEW 20 HEALTH MINUTES MARVIN OFFICE 43072 AKILAH AKILAH OUTPATIEN 0 0 HAIDER HAIDER T VISIT ELEMENTAR ELEMENTAR 10 Y Y MINUTES OFFICE 51112 AK[facility] AK[facility] OUTPATIEN 0 0 HAIDER HAIDER T VISIT ELEMENTAR ELEMENTAR 10 Y Y MINUTES OFFICE 66537 AK[facility] AKILAH OUTPATIEN 0 0 HAIDER HAIDER T VISIT ELEMENTAR ELEMENTAR 10 Y Y MINUTES OFFICE 47208 AKILAH AIKLAH OUTPATIEN 0 0 HAIDER HAIDER T VISIT ELEMENTAR ELEMENTAR 10 Y Y MINUTES OFFICE 00610 AK[facility] AKILAH OUTPATIEN 0 0 HAIDER HAIDER T VISIT ELEMENTAR ELEMENTAR 10 Y Y MINUTES OFFICE 90786 AK[facility] AKILAH OUTPATIEN 0 0 HAIDER HAIDER T VISIT ELEMENTAR ELEMENTAR 10 Y Y MINUTES OFFICE 14307 AKILAH AKILAH OUTPATIEN 0 0 HAIDER HAIDER T VISIT ELEMENTAR ELEMENTAR 10 Y Y MINUTES OFFICE 93964 [facility] AK[facility] OUTPATIEN 0 0 HAIDER HAIDER T VISIT ELEMENTAR ELEMENTAR 10 Y Y MINUTES OFFICE 43134 AK[facility] AKILAH OUTPATIEN 0 0 HAIDER HAIDER T VISIT ELEMENTAR ELEMENTAR 10 Y Y MINUTES OFFICE 00644 AK[facility] AKILAH OUTPATIEN 0 0 HAIDER HAIDER T VISIT ELEMENTAR ELEMENTAR 10 Y Y MINUTES OFFICE 49878 AIKLAH AKILAH OUTPATIEN 0 0 HAIDER HAIDER T VISIT ELEMENTAR ELEMENTAR 10 Y Y MINUTES OFFICE 35549 AKIL[facility] AKILAH OUTPATIEN 0 0 HAIDER HAIDER T VISIT ELEMENTAR ELEMENTAR 10 Y Y MINUTES OFFICE 59685 AK[facility] AKILAH OUTPATIEN 0 0 HAIDER HAIDER T VISIT ELEMENTAR ELEMENTAR 10 Y Y MINUTES OFFICE 49596 AK[facility] AKILAH OUTPATIEN 0 0 HAIDER HAIDER T VISIT ELEMENTAR ELEMENTAR 10 Y Y MINUTES OFFICE 74301 AKIL[facility] AKILAH OUTPATIEN 0 0 HAIDER HAIDER T VISIT ELEMENTAR ELEMENTAR 10 Y Y MINUTES OFFICE 48939 AKLIAH AKILAH OUTPATIEN 0 0 HAIDER HAIDER T VISIT ELEMENTAR ELEMENTAR 10 Y Y MINUTES OFFICE 11678 AKILAH AKILAH OUTPATIEN 0 0 HAIDER HAIDER T VISIT ELEMENTAR ELEMENTAR 10 Y Y MINUTES OFFICE 88470 AK[facility] AKILAH OUTPATIEN 0 0 HAIDER HAIDER T VISIT ELEMENTAR ELEMENTAR 10 Y Y MINUTES OFFICE 85578 AKIL[facility] AKILAH OUTPATIEN 0 0 HAIDER HAIDER T VISIT ELEMENTAR ELEMENTAR 10 Y Y MINUTES OFFICE 22630 AKILAH AKILAH OUTPATIEN 0 0 HAIDER HAIDER T VISIT ELEMENTAR ELEMENTAR 10 Y Y MINUTES OFFICE 52084 GERMAN LEARY 0 0 CHATO Parker T VISIT OD PSC 15 KOD MINUTES OFFICE 63985 AKIL[facility] AKILAH OUTPATIEN 0 0 HAIDER HAIDER T VISIT ELEMENTAR ELEMENTAR 10 Y Y MINUTES OFFICE 04791 AKILAH AKILAH OUTPATIEN 0 0 HAIDER HAIDER T VISIT ELEMENTAR ELEMENTAR 15 Y Y MINUTES OFFICE 84418 AKILAH AKILAH OUTPATIEN 0 0 HAIDER HAIDER T VISIT ELEMENTAR ELEMENTAR 15 Y Y MINUTES OFFICE 47759 AKILAH AKILAH OUTPATIEN 0 0 HAIDER HAIDER T VISIT ELEMENTAR ELEMENTAR 10 Y Y MINUTES OFFICE 83810 AKIL[facility] AKILAH OUTPATIEN 0 0 HAIDER HAIDER T VISIT ELEMENTAR ELEMENTAR 10 Y Y MINUTES OFFICE 97176 AKILAH AKILAH OUTPATIEN 0 0 HAIDER HAIDER T VISIT ELEMENTAR ELEMENTAR 15 Y Y MINUTES OFFICE 33886 AKILAH AKILAH OUTPATIEN 0 0 HAIDER HAIDER T VISIT ELEMENTAR ELEMENTAR 10 Y Y MINUTES OFFICE 42772 AKILAH AKILAH OUTPATIEN 0 0 HAIDER HAIDER T VISIT ELEMENTAR ELEMENTAR 10 Y Y MINUTES OFFICE 12936 AKILAH AKILAH OUTPATIEN 0 0 HAIDERJONATAN MCLEANES T VISIT ELEMENTAR ELEMENTAR 15 Y Y MINUTES OFFICE 29449 AKILAH AKILAH OUTPATIEN 0 0 HAIDERJONATAN HAIDER T VISIT ELEMENTAR ELEMENTAR 15 Y Y MINUTES OFFICE 24643 AKILAH AKILAH OUTPATIEN 0 0 HAIDERJONATAN HAIDER T VISIT ELEMENTAR ELEMENTAR 15 Y Y MINUTES OFFICE 45842 AKILAH AKILAH OUTPATIEN 0 0 HAIDERJONATAN HAIDER T VISIT ELEMENTAR ELEMENTAR 10 Y Y MINUTES OFFICE 06990 AKILAH AKILAH OUTPATIEN 0 0 HAIDERJONATAN MCLEANES T VISIT ELEMENTAR ELEMENTAR 10 Y Y MINUTES OFFICE 61119 AKILAH AKILAH OUTPATIEN 0 0 HAIDER HAIDER T VISIT ELEMENTAR ELEMENTAR 10 Y Y MINUTES OFFICE 75447 AKILAH AKILAH OUTPATIEN 0 0 HAIDER HAIDER T VISIT ELEMENTAR ELEMENTAR 15 Y Y MINUTES OFFICE 09388 AKILAH AKILAH OUTPATIEN 0 0 HAIDER HAIDER T VISIT ELEMENTAR ELEMENTAR 15 Y Y MINUTES OFFICE 94568 AKILAH AKILAH OUTPATIEN 0 0 HAIDER HAIDER T VISIT ELEMENTAR ELEMENTAR 15 Y Y MINUTES OFFICE 01687 AKILAH AKILAH OUTPATIEN 0 0 HAIDER HAIDER T VISIT ELEMENTAR ELEMENTAR 10 Y Y MINUTES OFFICE 37844 AKILAH AKILAH OUTPATIEN 0 0 HAIDER HAIDER T VISIT ELEMENTAR ELEMENTAR 10 Y Y MINUTES OFFICE 24999 AKILAH AKILAH OUTPATIEN 0 0 HAIDER HAIDER T VISIT ELEMENTAR ELEMENTAR 10 Y Y MINUTES OFFICE 61132 AKILAH AKILAH OUTPATIEN 0 0 HAIDER HAIDER T VISIT ELEMENTAR ELEMENTAR 10 Y Y MINUTES OFFICE 51929 AKILAH AKILAH OUTPATIEN 0 0 HAIDER HAIDER T VISIT ELEMENTAR ELEMENTAR 10 Y Y MINUTES OFFICE 81542 AKILAH AKILAH OUTPATIEN 0 0 HAIDER HAIDER T VISIT ELEMENTAR ELEMENTAR 10 Y Y MINUTES OFFICE 50681 AKILAH AKILAH OUTPATIEN 0 0 HAIDER HAIDER T VISIT ELEMENTAR ELEMENTAR 10 Y Y MINUTES OFFICE 10016 AKILAH AKILAH OUTPATIEN 0 0 HAIDER HAIDER T VISIT ELEMENTAR ELEMENTAR 15 Y Y MINUTES OFFICE 69601 AKILAH AKILAH OUTPATIEN 0 0 HAIDER HAIDER T VISIT ELEMENTAR ELEMENTAR 10 Y Y MINUTES OFFICE 19215 AKILAH AKILAH OUTPATIEN 0 0 HAIDER HAIDER T VISIT ELEMENTAR ELEMENTAR 10 Y Y MINUTES OFFICE 24809 AKILAH AKILAH OUTPATIEN 0 0 HAIDER HAIDER T VISIT ELEMENTAR ELEMENTAR 10 Y Y MINUTES OFFICE 14917 AKILAH AKILAH OUTPATIEN 0 0 HAIDER HAIDER T VISIT ELEMENTAR ELEMENTAR 10 Y Y MINUTES OFFICE 20341 AKILAH AKILAH OUTPATIEN 0 0 HAIDER HAIDER T VISIT ELEMENTAR ELEMENTAR 15 Y Y MINUTES OFFICE 01697 AKILAH AKILAH OUTPATIEN 0 0 HAIDER HAIDER T VISIT ELEMENTAR ELEMENTAR 15 Y Y MINUTES OFFICE 18544 AKILAH AKILAH OUTPATIEN 0 0 HAIDER HAIDER T VISIT ELEMENTAR ELEMENTAR 10 Y Y MINUTES OFFICE 75765 AKILAH AKILAH OUTPATIEN 0 0 HAIDER HAIDER T VISIT ELEMENTAR ELEMENTAR 10 Y Y MINUTES OFFICE 50740 AKILAH AKILAH OUTPATIEN 0 0 HAIDER HAIDER T VISIT ELEMENTAR ELEMENTAR 10 Y Y MINUTES OFFICE 85174 AKILAH AKILAH OUTPATIEN 0 0 HAIDER HAIDER T VISIT ELEMENTAR ELEMENTAR 15 Y Y MINUTES OFFICE 94104 AKILAH AKILAH OUTPATIEN 0 0 HAIDERJONATAN MCLEANES T VISIT ELEMENTAR ELEMENTAR 15 Y Y MINUTES OFFICE 30216 AKILAH AKILAH OUTPATIEN 0 0 MELIZA HAIDER T VISIT ELEMENTAR ELEMENTAR 15 Y Y MINUTES OFFICE 11436 AKILAH AKILAH OUTPATIEN 0 0 HAIDERJONATAN HAIDER T VISIT ELEMENTAR ELEMENTAR 15 Y Y MINUTES OFFICE 14507 AKILAH AKILAH OUTPATIEN 0 0 HAIDERJONATAN HAIDER T VISIT ELEMENTAR ELEMENTAR 10 Y Y MINUTES OFFICE 95814 AKILAH AKILAH OUTPATIEN 0 0 HAIDERJONATAN MCLEANES T VISIT ELEMENTAR ELEMENTAR 10 Y Y MINUTES OFFICE 92783 AKILAH AKILAH OUTPATIEN 0 0 HAIDER HAIDER T VISIT ELEMENTAR ELEMENTAR 15 Y Y MINUTES OFFICE 59385 AKILAH AKILAH OUTPATIEN 9 9 HAIDER HAIDER T VISIT ELEMENTAR ELEMENTAR 10 Y Y MINUTES OFFICE 00579 AKILAH AKILAH OUTPATIEN 9 9 HAIDER HADIER T VISIT ELEMENTAR ELEMENTAR 10 Y Y MINUTES OFFICE 14679 AKILAH AKILAH OUTPATIEN 9 9 HAIDER HAIDER T VISIT ELEMENTAR ELEMENTAR 10 Y Y MINUTES OFFICE 40750 [facility]PATI[facility] 9 9 HEALTH HAIDER T VISIT CENTRAL ELEMENTAR 10 BANK ACCT Y MINUTES OFFICE 81769 [facility] OUTPATIEN 9 9 HEALTH HAIDER T VISIT CENTRAL ELEMENTAR 10 BANK ACCT Y MINUTES OFFICE 84952 [facility] OUTPATIEN 9 9 HEALTH HAIDER T VISIT CENTRAL ELEMENTAR 15 BANK ACCT Y MINUTES OFFICE 25264 [facility] OUTPATIEN 9 9 HEALTH HAIDER T VISIT CENTRAL ELEMENTAR 15 BANK ACCT Y MINUTES OFFICE 67333 [facility] OUTPATIEN 9 9 HEALTH HAIDER T VISIT CENTRAL ELEMENTAR 15 BANK ACCT Y MINUTES OFFICE 78925 [facility] OUTPATIEN 9 9 HEALTH HAIDER T VISIT CENTRAL ELEMENTAR 10 BANK ACCT Y MINUTES OFFICE 90055 [facility] OUTPATIEN 9 9 HEALTH HAIDER T VISIT CENTRAL ELEMENTAR 10 BANK ACCT Y MINUTES OFFICE 61464 [facility] OUTPATIEN 9 9 HEALTH HAIDER T VISIT CENTRAL ELEMENTAR 10 BANK ACCT Y MINUTES OFFICE 43350 [facility] OUTPATIEN 9 9 HEALTH HAIDER T VISIT CENTRAL ELEMENTAR 10 BANK ACCT Y MINUTES OFFICE 86151 [facility] OUTPATIEN 9 9 HEALTH HAIDER T VISIT CENTRAL ELEMENTAR 10 BANK ACCT Y MINUTES OFFICE 41841 [facility] OUTPATIEN 9 9 HEALTH HAIDER T VISIT CENTRAL ELEMENTAR 10 BANK ACCT Y MINUTES OFFICE 01330 [facility] OUTPATIEN 9 9 HEALTH HAIDER T VISIT CENTRAL ELEMENTAR 10 BANK ACCT Y MINUTES OFFICE 22187 [facility] OUTPATIEN 9 9 HEALTH HAIDER T VISIT CENTRAL ELEMENTAR 10 BANK ACCT Y MINUTES OFFICE 41878 [facility] OUTPATIEN 9 9 HEALTH HAIDER T VISIT CENTRAL ELEMENTAR 10 BANK ACCT Y MINUTES OFFICE 12654 [facility] OUTPATIEN 9 9 HEALTH HAIDER T VISIT CENTRAL ELEMENTAR 10 BANK ACCT Y MINUTES OFFICE 24475 [facility] OUTPAT[facility]EN 9 9 HEALTH HAIDER T VISIT CENTRAL ELEMENTAR 10 BANK ACCT Y MINUTES OFFICE 15884 [facility] OUTPATIEN 9 9 HEALTH HAIDER T VISIT CENTRAL ELEMENTAR 15 BANK ACCT Y MINUTES OFFICE 31751 [facility] OUTPATIEN 9 9 HEALTH HAIDER T VISIT CENTRAL ELEMENTAR 10 BANK ACCT Y MINUTES OFFICE 42976 [facility] OUTPATIEN 9 9 HEALTH HAIDER T VISIT CENTRAL ELEMENTAR 10 BANK ACCT Y MINUTES OFFICE 13646 [facility] COOK, OUTPATIEN 9 9 [place] Y[facility] G T VISIT G CLINIC 15 MINUTES OFFICE 35730 [facility] OUTPATIEN 9 9 HEALTH HAIDER T VISIT CENTRAL ELEMENTAR 10 BANK ACCT Y MINUTES OFFICE 13891 [facility] OUTPATIEN 9 9 HEALTH HAIDER T VISIT CENTRAL ELEMENTAR 10 BANK ACCT Y MINUTES OFFICE 17903 [facility] OUTPATIEN 9 9 HEALTH HAIDER T VISIT CENTRAL ELEMENTAR 10 BANK ACCT Y MINUTES OFFICE 59158 [facility] OUTPATIEN 9 9 HEALTH HAIDER T VISIT CENTRAL ELEMENTAR 15 BANK ACCT Y MINUTES OFFICE 84146 [facility] OUTPATIEN 9 9 HEALTH HAIDER T VISIT CENTRAL ELEMENTAR 15 BANK ACCT Y MINUTES INITIAL 43268 [facility] PREVENTIV 9 9 HEALTH HAIDER E CENTRAL ELEMENTAR MEDICINE BANK ACCT Y NEW PT AGE 5-11 YRS OFFICE 82601 [facility] OUTPATIEN 9 9 HEALTH HAIDER T VISIT CENTRAL ELEMENTAR 25 BANK ACCT Y MINUTES [facility] [place] - 9 9 [facility] 02439 [facility] OUTPAT[facility]EN 9 9 HEALTH HAIDER T VISIT CENTRAL ELEMENTAR 15 BANK ACCT Y MINUTES OFFICE 92661 [facility] OUTPATIEN 9 9 HEALTH HAIDER T VISIT CENTRAL ELEMENTAR 25 BANK ACCT Y MINUTES [facility]OSP[facility] - 9 9 Y [facility] T OFFICE 23533 [facility] OUTPATIEN 8 8 HEALTH HAIDER T VISIT CENTRAL ELEMENTAR 15 BANK ACCT Y MINUTES OFFICE 36543 [place] [facility] 8 8 MEDICAL T, T VISIT [facility] UNIVERSIT - 8 8 Y [facility] T OFFICE 43679 [facility] 8 8 [place], SANDY T VISIT G CLINIC 15 MINUTES OFFICE 73111 [place] [facility] 8 8 MEDICAL T, T VISIT [facility] [address] [facility] UNIVERSIT - 8 8 Y [facility] T OFFICE 44646 [facility] OUTPATIEN 8 8 HEALTH HAIDER T VISIT CENTRAL ELEMENTAR 15 BANK ACCT Y MINUTES PERIODIC 50283 [facility] PREVENTIV 8 8 HEALTH HAIDER E MED EST CENTRAL ELEMENTAR PATIENT BANK ACCT Y 5-11YRS OFFICE 95408 [facility] OUTPATIEN 8 8 HEALTH HAIDER T VISIT CENTRAL ELEMENTAR 15 BANK ACCT Y MINUTES
--- OUTSIDE RECORDS SUMMARY | 2017-03-09 18:25 | External Medical Summary Rpt | CCD ---
Author Author , BRANDYN PINEDAJB Address Unknown Phone [email or web address] Immunization Name Date Rout CVX Reac Dose Comm Prov Is Faci e tion ent ider Refu lity Give sed n MCV4 03-1 147 999 Hist H167 No H167 UF 8-20 oric 09 al Info rmat ion - Sour ce Unsp ecif ied PCV7 08-0 100 999 Hist H167 No H167 3-20 oric 01 al Info rmat ion - Sour ce Unsp ecif ied DTaP 08-0 107 999 Hist H167 No H167 , UF 3-20 oric 01 al Info rmat ion - Sour ce Unsp ecif ied MMR 08-0 3 999 Hist H167 No H167 3-20 oric 01 al Info rmat ion - Sour ce Unsp ecif ied Braulio 08-0 10 999 Hist H167 No H167 o-IP 3-20 oric V 01 al Info rmat ion - Sour ce Unsp ecif ied Braulio 08-1 10 999 Hist H167 No H167 o-IP 0-20 oric V 00 al Info rmat ion - Sour ce Unsp ecif ied Hib 08-1 49 999 Hist H167 No H167 (PRP 0-20 oric -OMP 00 al ; Info pedv rmat ax ion - Sour ce Unsp ecif ied DTaP 08-1 107 999 Hist H167 No H167 , UF 0-20 oric 00 al Info rmat ion - Sour ce Unsp ecif ied DTaP 02-1 107 999 Hist H167 No H167 , UF 7-19 oric 99 al Info rmat ion - Sour ce Unsp ecif ied Hib 02-1 49 999 Hist H167 No H167 (PRP 7-19 oric -OMP 99 al ; Info pedv rmat ax ion - Sour ce Unsp ecif ied DTaP 12-1 107 999 Hist H167 No H167 , UF 7-19 oric 98 al Info rmat ion - Sour ce Unsp ecif ied MMR 12-1 3 999 Hist H167 No H167 7- oric 98 al Info rmat ion - Sour ce Unsp ecif ied Braulio 12- 10 999 Hist H167 No H167 o-IP 7- oric V 98 al Info rmat ion - Sour ce Unsp ecif ied Hep - 8 999 Hist H167 No H167 B, - oric ped/ 98 al adol Info rmat ion - Sour ce Unsp ecif ied Hib, 04-24 17 999 Hist H167 No H167 UF 7- oric 98 al Info rmat ion - Sour ce Unsp ecif ied
--- OUTSIDE RECORDS SUMMARY | 2017-03-09 18:25 | External Medical Summary Rpt | CCD ---
Author Author , BRANDYN PINEDAJB Address Unknown Phone [email or web address]) Immunization Name Date Rout CVX Reac Dose [...]
[2017-03-09] MEDS ORDERED: PROMETHAZINE HC25 M1 PO (19:23)
--- NOTE | 2017-03-09 19:28 | Urgent Treatment Center Report ---
History of Present Issue Date/Time Seen by Provider 03/09/171911 Visit Reason Pt arrived:Walked Presenting Problem:PT C/O STOMACH CRAMPING, DIARRHEA, VOMITING. ADVISES Reji/Daksha HAD STOMACH VIRUS LAST WEEK AND HE STARTED FEELING BAD THIS AM Location if Accident: Onset of symptoms date/time:/ or onset unknown for:MEDICAL HX UNKNOWN Have you (or family members/close friends) recently traveled outside the [place]? N If Yes, where/when: Have you had exposure to infectious disease within the past month? TB? Other? Specify: c/o N/V/D starting this morning at 9am. Girlfriend w/ same symptoms 2-3 days ago. Vomited 2-3 times today. Diarrhea approx 5-7 times. Watery. Brown. Hx of colon polyps. Last colonoscopy 2 months ago. Normal. Next one 5 years ago. Hasn' t taken or tried anything for symptoms. Requesting work excuse for today. Source patient, girlfriend Exam Limitations no limitations ALLERGIES Coded Allergies: No Known Allergies (03/09/17) History Medical History Immunization HX DT/Tetanus Unknown Surgical Hx Previous Surgery?N Social History Smoking Hx Smoker: Never Smoker Tobacco: No Alcohol Alcohol: No Review of Systems All Other Systems Reviewed and Negative Constitutional see HPI, denies fever, denies malaise Eyes denies drainage ENT denies: ear pain, nose discharge, nose congestion, throat pain. Respiratory denies cough Cardiovascular denies chest pain Gastrointestinal see HPI, abdominal pain (cramping, worse w/ diarrhea) Genitourinary denies: dysuria, frequency. Skin denies rash Psychiatric/Neurological denies headache Physical Exam Vital Signs Vital Signs Date Time Temp Pulse Resp B/P Pulse O2 O2 Flow FiO2 Ox Delivery Rate 03/09 1821 98.5 89 16 132/74 98 03/09 181 98.5 89 16 132/74 98 General Appearance normal appearance, no apparent distress Ear, Nose, Throat normal ENT inspection Respiratory Status No: respiratory distress, productive cough, non productive cough. Lung Sounds anterior: lungs clear. posterior: lungs clear. bilateral: lungs clear. Cardiovascular regular rate/rhythm, no peripheral edema, no murmur Gastrointestinal non tender, soft, no organomegaly, abnormal bowel sounds ( hyperactive), no guarding, no rebound Back no CVA tenderness Neurologic alert, oriented x 3 Mental status normal mood/affect Skin normal color, warm/dry Medical Decision Making LABS/Meds/Orders Pt receiving controlled substance in ED? No Results/Orders Current Medication Orders Sig/Sharad Start time Last Medication Dose Route Stop Time Status Admin Promethazine HCl 25 MG ONCE ONE 03/09 1930 AC IM 03/09 1931 Sodium Chloride 25 ML ONCE ONE 03/09 1930 AC IV 03/09 1944 Promethazine HCl 0 .STK-MED ONE 03/09 1922 DC .ROUTE Departure Departure Time of Disposition 1918 Disposition DC Home or Self Care(routine) Clinical Impression Primary Impression: Viral gastroenteritis Condition STABLE Referrals NO REFERRAL Follow up IMMEDIATELY for new or worsening symptoms OR no noticeable improvement over the next 48 hours. Patient Instructions DI for Viral Gastroenteritis -- Adult Additional Instructions * Monitor Temp. FU if fever develops * Follow up immediately for new or worsening symptoms OR no noticeable improvement over the next 48 hours. * Increase fluids. Water, gatorade, powerade, juice OR pedialyte with limited formula/dairy in children. * No food is ok as long as you or your child is drinking. Once ready to eat, start bland. bananas, rice, applesauce, toast * Contagious until no diarrhea, vomiting, fever x 24 hours without medication * Avoid anti-diarrheals unless told otherwise. Best to let the virus run its course. Discharge Counseling Counseled pt/family regarding diagnosis, medications/RX, home care, follow up needs Prescriptions Current Visit Scripts PROMETHAZINE HCL (Promethazine 25mg Tab) 25 MG PO Q8HP PRN nausea or vomiting #9 TAB will cause drowsiness at 1928
[2017-03-09 19:29] VITALS: BP 132/74
== END 2017-03-09 19:32 | disposition home or self-care (01) ==
LOC: ER 18:01 → UTC 18:11
DX: A08.4 Viral intestinal infection, unspecified (principal); Z87.19 Personal history of other diseases of the digestive system